=== PATIENT | female | born 1950 | race Caucasian/White ===

== ENCOUNTER → 2016-05-26 | Outpatient (CLI) | payer MEDICARE, MEDICAID ==
[~2016-05-26] MED LIST: ALBUPOW9 INH; ASPI81TA7 PO; ASTE137S; BACT400T PO; CALC600T7 PO; CLIN300C PO; DOXY-197 PO; DOXY150C PO; DRIS1CAP PO; EPI PEN SC; GLUC500T PO; HYZA100T2 PO; MULTTAB4 PO; NORCOTAB PO; OMEP20CA3 PO; PRAV40TA PO; SIMV40TA2 PO; SING4GRA PO; SYMB16INH INH; TYLE325T5 PO; VITAD1000T PO; ZOLO100T PO
== END ==
LOC: M HL 11:32
PROVIDERS: ATTEND Nurse Practitioner Family
DX: Z71.3 Dietary counseling and surveillance (principal); E11.9 Type 2 diabetes mellitus without complications

== ENCOUNTER → 2016-05-28 | Outpatient (REF) | payer MEDICARE, MEDICAID | LOC: M SFHCWAGY 11:16 | PROVIDERS: ATTEND Nurse Practitioner Family | DX: Z12.12 Encounter for screening for malignant neoplasm of rectum (principal) ==

== ENCOUNTER → 2016-05-28 | Outpatient (CLI) | payer MEDICARE, MEDICAID ==
--- NOTE | 2016-05-28 13:57 | REPMRS ---
Patient History The patient states she had a clinical breast exam in 05/2016. Patient is postmenopausal, has history of endometrial cancer at age 51, and is nulliparous. No known family history of cancer. Digital Woman Screen Mammo: May 28, 2016 - Exam #: [id number] Bilateral CC and MLO view(s) were taken. Technologist: Marian Jacobo, Technologist Prior study comparison: August 22, 2014, digital woman screen mammo performed at [facility] to [place]. April 26, 2013, digital woman screen mammo performed at [facility] to [place]. March 17, 2012, digital woman screen mammo performed at [facility] to [place]. FINDINGS: There are scattered fibroglandular densities. There has been no change in the appearance of the mammogram from the prior studies. There is a mild amount of scattered fibroglandular density which is fairly symmetric. There is no interval development of dominant mass, architectural distortion, or clustered microcalcification suggestive of malignancy. ASSESSMENT: BI-RADS/ACR category 1 mammogram. Negative. Recommendation Routine screening mammogram in 1 year (for women over age 40). This mammogram was interpreted with the aid of an FDA-approved computer-aided dectection system. Electronically Signed By: Eren Garcia MD 05/28/16 [id number]
== END ==
LOC: M WHC 10:53
PROVIDERS: ATTEND Nurse Practitioner Family
DX: Z12.31 Encounter for screening mammogram for malignant neoplasm of breast (principal); Z91.89 Other specified personal risk factors, not elsewhere classified; Z78.0 Asymptomatic menopausal state; Z12.12 Encounter for screening for malignant neoplasm of rectum
CPT/HCPCS: 82270; G0101; G0123; G0202

== ENCOUNTER 2016-06-22 15:18 | Emergency (ER) | payer MEDICARE, MEDICAID ==
[2016-06-22] MEDS ORDERED: IBUPROFEN 600 MG TAB As Ordered ONE (18:00)
[2016-06-22] MEDS ORDERED: ONDANSETRON 4 MG ORAL DISINTEGRATING TAB (S0181) As Ordered ONE (18:00)
--- NOTE | 2016-06-22 18:23 | REP ---
Clinical: Acute cough . Comparison: 11/14/2013 . Technique: PA and lateral. Findings: The mediastinum and cardiac silhouette are normal. The lung rhodes are clear and without acute consolidation, effusion, or pneumothorax. The skeletal structures are intact and normal. Impression: 1. No acute cardiopulmonary process. Signed by Bharat Orr MD 06/22/2016 06:15 P
--- NOTE | 2016-06-22 19:07 | EDDOCDS ---
Physician Documentation [facility] Name: Emma Mccarty Age: 65 yrs Sex: Female : 1950 Arrival Date: 06/22/2016 Time: 15:18 Bed TR7 Private MD: Machelle Dorsey NP Disposition: 06/22/16 18:45 Discharged to Home/Self Care. Impression: Other asthma - irritant to airway, Vomiting. - Condition is Stable. - Discharge Instructions: Nausea and Vomiting, Asthma, Acute Bronchospasm. - Prescriptions for ZOFRAN ODT 4 mg - dissolve 1 tablet by ORAL route 4 times per day As needed do not chew, do not swallow whole; 10 tablet. Albuterol Sulfate 2.5 mg /3 mL (0.083 %) Inhalation Solution for Nebulization - inhale 1 unit by NEBULIZATION route 4 times per day As needed; 1 box. - Medication Reconciliation, Local Pharmacy Hours form. - Follow up: Machelle Dorsey; When: Call to arrange an appointment; Reason: Recheck today's complaints, Continuance of care. - Problem is new. - Symptoms are unchanged. Historical: - Allergies: Bees; Prozac (Rash); - Home Meds: 1. atorvastatin 80 mg oral tab 1 tab once daily 2. glipizide 10 mg Oral tr24 1 tab once daily 3. hydrochlorothiazide 12.5 mg Oral cap 1 cap once daily 4. losartan-hydrochlorothiazide 50-12.5 mg oral tab 1 tab once daily 5. Prilosec 20 mg Oral cpDR 1 cap once daily as needed 6. Singulair 10 mg Oral tab 1 tab nightly 7. Tradjenta 5 mg oral tab 1 tab once daily 8. Zoloft 100 mg Oral tab 1 tab once daily 9. Lamisil oral Unknown oral - PMHx: Asthma; Depression; Diabetes - NIDDM: uncontrolled; Hypercholesterolemia; Hypertension; - PSHx: Hysterectomy; Cholecystectomy; double vein ligation; - Social history: Smoking status: Patient/guardian denies using No barriers to communication noted, The patient speaks fluent Dominican. - Family history: Not pertinent. - : The pt / caregiver states he / she is not on anticoagulants. Home medication list is obtained from the patient, [employer] import data. - Exposure Risk Screening:: None identified. Vital Signs: 06/22 15:21 BP 142 / 69; Pulse 67; Resp 18 S; Temp 95.8(O); Pulse Ox 97% on R/A; Weight 99.79 kg / gr2 220 lbs (R); Height 4 ft. 10 in. (147.32 cm) (R); Pain 4/10; 15:21 Body Mass Index 45.98 (99.79 kg, 147.32 cm) gr2 MDM: 17:39 Financial registration complete. gjb 17:42 [facility] Payment Agreement was scanned into [employer] and attached to record. gjb 17:44 Ibuprofen 600 mg PO once ordered. mo1 17:44 Ondansetron ODT Oral Disintegrating Tablet 4 mg PO once ordered. mo1 17:45 Chest, 2 View (pa\E\lat) Ordered. EDMS Administered Medications: 18:03 Drug: Ibuprofen 600 mg [ibuprofen 600 mg tablet (1 tabs)] Route: PO; kcs 18:03 Drug: Ondansetron ODT 4 mg [ondansetron 4 mg disintegrating tablet (1 tabs)] Route: PO; kcs Signatures: Dispatcher [employer] EDMS Sultana Gomez, Jose Rafael Reyes RN, PA PA mo1 Kathy Troncoso RN RN mk4 Beck, Gabriela gjb Sleeman, Kacey RN kcs The chart was reviewed and I authenticate all verbal orders and agree with the evaluation and treatment provided.Attachments: 17:42 [facility] Payment Agreement gjb MTDD
--- NOTE | 2016-06-22 19:07 | EDDOCDS ---
Nurse's Notes Name: Emma Mccarty Age: 65 yrs Sex: Female : 1950 Arrival Date: 06/22/2016 Time: 15:18 Bed TR7 Private MD: Machelle Dorsey NP Diagnosis: Other asthma-irritant to airway;Vomiting Presentation: 06/22 15:27 Presenting complaint: Patient states: Pt presents with c/o body aches vomiting diarrhea dls shaking dizzy since . Adult Sepsis Screening: The patient does not have new or worsening altered mentation. Patient's respiratory rate is less than 22. Systolic blood pressure is greater than 100. Patient has a qSOFA score of 0- Negative Sepsis Screen. Suicide/Homicide risk assessment- the patient denies having any suicidal and/or homicidal ideations and does not present with any other emotional, behavioral or mental health complaints. Status: Patient is not a service administrator or dependent. Transition of care: patient was not received from another setting of care. 15:27 Acuity: KILO Level 4 dls 15:27 Method Of Arrival: Walkin/Carried/Asstd dls Triage Assessment: 18:58 Pt Declines HIV testing. mk4 Historical: - Allergies: Bees; Prozac (Rash); - Home Meds: 1. atorvastatin 80 mg oral tab 1 tab once daily 2. glipizide 10 mg Oral tr24 1 tab once daily 3. hydrochlorothiazide 12.5 mg Oral cap 1 cap once daily 4. losartan-hydrochlorothiazide 50-12.5 mg oral tab 1 tab once daily 5. Prilosec 20 mg Oral cpDR 1 cap once daily as needed 6. Singulair 10 mg Oral tab 1 tab nightly 7. Tradjenta 5 mg oral tab 1 tab once daily 8. Zoloft 100 mg Oral tab 1 tab once daily 9. Lamisil oral Unknown oral - PMHx: Asthma; Depression; Diabetes - NIDDM: uncontrolled; Hypercholesterolemia; Hypertension; - PSHx: Hysterectomy; Cholecystectomy; double vein ligation; - Social history: Smoking status: Patient/guardian denies using No barriers to communication noted, The patient speaks fluent East Timorese. - Family history: Not pertinent. - : The pt / caregiver states he / she is not on anticoagulants. Home medication list is obtained from the patient, [employer] import data. - Exposure Risk Screening:: None identified. Screenin:15 Screening information is obtained from the patient. Fall risk: No risks identified. mk4 Assistance ADL's: requires no assistance with activities of daily living. Abuse/DV Screen: The patient / caregiver reports he/she is: not in a situation that causes fear, pain or injury. Nutritional screening: No deficits noted. Advance Directives: Currently, there is no health care proxy. There is no active DNR order. There is no living will. home support is adequate. Assessment: 17:15 General: Appears distressed, uncomfortable. Pain: Location: body aches all over. mk4 Neurological: Level of Consciousness is awake, alert. GI: Abdomen is obese, Abd is soft and non tender. 19:04 Reassessment: Patient states feeling better. Patient states symptoms have improved. mk4 General: Appears in no apparent distress, comfortable. Respiratory: Airway is patent Respiratory effort is even, unlabored, Respiratory pattern is regular. Vital Signs: 15:21 BP 142 / 69; Pulse 67; Resp 18 S; Temp 95.8(O); Pulse Ox 97% on R/A; Weight 99.79 kg gr2 (R); Height 4 ft. 10 in. (147.32 cm) (R); Pain 4/10; 15:21 Body Mass Index 45.98 (99.79 kg, 147.32 cm) gr2 Vitals: 15:21 Log In Time: June 22, 2016 at 15:21. gr2 ED Course: 15:20 Patient visited by Renetta Alcantara. gr2 15:20 Machelle Dorsey is Private Physician. gr2 15:20 Patient moved to Waiting gr2 15:23 Patient visited by Renetta Alcantara. gr2 15:23 Patient moved to Pre RCE gr2 15:28 Triage Initiated dls 17:15 The patient / caregiver is instructed regarding the plan of care and ED course. mk4 17:15 No IV's were initiated during this patient's visit. No procedures done that require mk4 assistance. 17:17 Patient moved to Triage 1 ct3 17:28 Jose Rafael Resendez PA is PHCP. mo1 17:28 Sinan Del Valle MD is Attending Physician. mo1 17:30 Patient visited by Jose Rafael Resendez PA. mo1 17:42 [facility] Payment Agreement was scanned into [employer] and attached to record. gjb 18:03 Patient moved to TR1 kcs 18:15 Patient visited by Mi Saldaña PCA. ct3 18:35 Patient moved to PD kcs 18:42 Chest, 2 View (pa\E\lat) Returned. EDMS 18:45 Machelle Dorsey is Referral Physician. mo1 19:03 Patient moved to TR7 dsf Administered Medications: 18:03 Drug: Ibuprofen 600 mg [ibuprofen 600 mg tablet (1 tabs)] Route: PO; kcs 18:03 Drug: Ondansetron ODT 4 mg [ondansetron 4 mg disintegrating tablet (1 tabs)] Route: PO; kcs Order Results: Radiology Order: Chest, 2 View (pa\E\lat) Test: Chest, 2 View (pa\E\lat) REASON FOR EXAMINATION: Cough; Clinical: Acute cough .; ; Comparison: 11/14/2013 .; ; Technique: PA and lateral.; ; Findings:; The mediastinum and cardiac silhouette are normal. The lung rhodes are clear and; without acute consolidation, effusion, or pneumothorax. The skeletal structures; are intact and normal.; ; Impression:; 1. No acute cardiopulmonary process.; ; ; Signed by; Bharat Orr MD 06/22/2016 06:15 P; Outcome: 17:15 Discharge Assessment: Patient awake, alert and oriented x 3. No cognitive and/or mk4 functional deficits noted. Patient verbalized understanding of disposition instructions. Patient awake and alert. Discharge Assessment: patient administered narcotics - no. The following High Risk Discharge criteria are identified: None. Condition: good Condition: stable. No special radiology studies were completed. Property sent home with patient. 18:45 Discharge ordered by Provider. mo1 19:05 Discharge instructions given to patient, Instructed on discharge instructions. mk4 19:06 Patient left the ED. mk4 Signatures: Dispatcher [employer] EDMS Melodie Her RN RN kcs Scott, Debra, RN RN dls Taveras, Consuelo, PCA PCA ct3 Anne Brasher RN RN [facility] Renetta Alcantara gr2 Jose Rafael Resendez PA PA mo1 Aba, Kathy, RN RN mk4 Ugarte, Sheridan gjb MTDD
--- NOTE | 2016-06-24 20:07 | EDDOCDS ---
Physician Documentation [facility] Name: Emma Mccarty Age: 65 yrs Sex: Female : 1950 Arrival Date: 06/22/2016 Time: 15:18 Bed TR7 Private MD: Machelle Dorsey NP Disposition: 06/22/16 18:45 Discharged to Home/Self Care. Impression: Other asthma - irritant to airway, Vomiting. - Condition is Stable. - Discharge Instructions: Nausea and Vomiting, Asthma, Acute Bronchospasm. - Prescriptions for ZOFRAN ODT 4 mg - dissolve 1 tablet by ORAL route 4 times per day As needed do not chew, do not swallow whole; 10 tablet. Albuterol Sulfate 2.5 mg /3 mL (0.083 %) Inhalation Solution for Nebulization - inhale 1 unit by NEBULIZATION route 4 times per day As needed; 1 box. - Medication Reconciliation, Local Pharmacy Hours form. - Follow up: Machelle Dorsey; When: Call to arrange an appointment; Reason: Recheck today's complaints, Continuance of care. - Problem is new. - Symptoms are unchanged. Historical: - Allergies: Bees; Prozac (Rash); - Home Meds: 1. atorvastatin 80 mg oral tab 1 tab once daily 2. glipizide 10 mg Oral tr24 1 tab once daily 3. hydrochlorothiazide 12.5 mg Oral cap 1 cap once daily 4. losartan-hydrochlorothiazide 50-12.5 mg oral tab 1 tab once daily 5. Prilosec 20 mg Oral cpDR 1 cap once daily as needed 6. Singulair 10 mg Oral tab 1 tab nightly 7. Tradjenta 5 mg oral tab 1 tab once daily 8. Zoloft 100 mg Oral tab 1 tab once daily 9. Lamisil oral Unknown oral - PMHx: Asthma; Depression; Diabetes - NIDDM: uncontrolled; Hypercholesterolemia; Hypertension; - PSHx: Hysterectomy; Cholecystectomy; double vein ligation; - Social history: Smoking status: Patient/guardian denies using No barriers to communication noted, The patient speaks fluent Austrian. - Family history: Not pertinent. - : The pt / caregiver states he / she is not on anticoagulants. Home medication list is obtained from the patient, [email or web address] import data. - Exposure Risk Screening:: None identified. Vital Signs: 06/22 15:21 BP 142 / 69; Pulse 67; Resp 18 S; Temp 95.8(O); Pulse Ox 97% on R/A; Weight 99.79 kg / gr2 220 lbs (R); Height 4 ft. 10 in. (147.32 cm) (R); Pain 4/10; 15:21 Body Mass Index 45.98 (99.79 kg, 147.32 cm) gr2 MDM: 17:39 Financial registration complete. gjb 17:42 [facility] Payment Agreement was scanned into [employer] and attached to record. gjb 17:44 Ibuprofen 600 mg PO once ordered. mo1 17:44 Ondansetron ODT Oral Disintegrating Tablet 4 mg PO once ordered. mo1 17:45 Chest, 2 View (pa\E\lat) Ordered. EDIL 06/23 12:50 T-Sheet-- Draft Copy was scanned into [employer] and attached to record. gb Administered Medications: 06/22 18:03 Drug: Ibuprofen 600 mg [ibuprofen 600 mg tablet (1 tabs)] Route: PO; kcs 18:03 Drug: Ondansetron ODT 4 mg [ondansetron 4 mg disintegrating tablet (1 tabs)] Route: PO; kcs Signatures: Dispatcher [employer] EDIL Sultana Gomez, RN RN Alisson Petersen, Reg Reg Jose Rafael Gallardo PA PA mo1 Kathy Troncoso RN RN Sheridan Mahmood Kacey RN kcs The chart was reviewed and I authenticate all verbal orders and agree with the evaluation and treatment provided.Attachments: 17:42 [facility] Payment Agreement page hospital 06/23 12:50 T-Sheet-- Draft Copy gb Chart Complete MTDD
--- NOTE | 2016-06-24 20:07 | EDDOCDS ---
Physician Documentation [facility] Name: Emma Mccarty Age: 65 yrs Sex: Female : 1950 Arrival Date: 06/22/2016 Time: 15:18 Bed TR7 Private MD: Machelle Dorsey NP Disposition: 06/22/16 18:45 Discharged to Home/Self Care. Impression: Other asthma - irritant to airway, Vomiting. - Condition is Stable. - Discharge Instructions: Nausea and Vomiting, Asthma, Acute Bronchospasm. - Prescriptions for ZOFRAN ODT 4 mg - dissolve 1 tablet by ORAL route 4 times per day As needed do not chew, do not swallow whole; 10 tablet. Albuterol Sulfate 2.5 mg /3 mL (0.083 %) Inhalation Solution for Nebulization - inhale 1 unit by NEBULIZATION route 4 times per day As needed; 1 box. - Medication Reconciliation, Local Pharmacy Hours form. - Follow up: Machelle Dorsey; When: Call to arrange an appointment; Reason: Recheck today's complaints, Continuance of care. - Problem is new. - Symptoms are unchanged. Historical: - Allergies: Bees; Prozac (Rash); - Home Meds: 1. atorvastatin 80 mg oral tab 1 tab once daily 2. glipizide 10 mg Oral tr24 1 tab once daily 3. hydrochlorothiazide 12.5 mg Oral cap 1 cap once daily 4. losartan-hydrochlorothiazide 50-12.5 mg oral tab 1 tab once daily 5. Prilosec 20 mg Oral cpDR 1 cap once daily as needed 6. Singulair 10 mg Oral tab 1 tab nightly 7. Tradjenta 5 mg oral tab 1 tab once daily 8. Zoloft 100 mg Oral tab 1 tab once daily 9. Lamisil oral Unknown oral - PMHx: Asthma; Depression; Diabetes - NIDDM: uncontrolled; Hypercholesterolemia; Hypertension; - PSHx: Hysterectomy; Cholecystectomy; double vein ligation; - Social history: Smoking status: Patient/guardian denies using No barriers to communication noted, The patient speaks fluent Spanish. - Family history: Not pertinent. - : The pt / caregiver states he / she is not on anticoagulants. Home medication list is obtained from the patient, [employer] import data. - Exposure Risk Screening:: None identified. Vital Signs: 06/22 15:21 BP 142 / 69; Pulse 67; Resp 18 S; Temp 95.8(O); Pulse Ox 97% on R/A; Weight 99.79 kg / gr2 220 lbs (R); Height 4 ft. 10 in. (147.32 cm) (R); Pain 4/10; 15:21 Body Mass Index 45.98 (99.79 kg, 147.32 cm) gr2 MDM: 17:39 Financial registration complete. gjb 17:42 [facility] Payment Agreement was scanned into [employer] and attached to record. gjb 17:44 Ibuprofen 600 mg PO once ordered. mo1 17:44 Ondansetron ODT Oral Disintegrating Tablet 4 mg PO once ordered. mo1 17:45 Chest, 2 View (pa\E\lat) Ordered. EDMA 06/23 12:50 T-Sheet-- Draft Copy was scanned into [employer] and attached to record. gb Administered Medications: 06/22 18:03 Drug: Ibuprofen 600 mg [ibuprofen 600 mg tablet (1 tabs)] Route: PO; kcs 18:03 Drug: Ondansetron ODT 4 mg [ondansetron 4 mg disintegrating tablet (1 tabs)] Route: PO; kcs Signatures: Dispatcher [employer] EDMA Sultana Gomez, RN RN Alisson Petersen, Reg Reg Jose Rafael Gallardo PA PA mo1 Kathy Troncoso RN RN Sheridan Mahmood Kacey RN kcs The chart was reviewed and I authenticate all verbal orders and agree with the evaluation and treatment provided.Attachments: 17:42 [facility] Payment Agreement [facility] 06/23 12:50 T-Sheet-- Draft Copy gb Chart Complete MTDD
--- NOTE | 2016-06-24 20:07 | EDDOCDS ---
Nurse's Notes [facility] Name: Emma Mccarty Age: 65 yrs Sex: Female : 1950 Arrival Date: 06/22/2016 Time: 15:18 Bed TR7 Private MD: Machelle Dorsey NP Diagnosis: Other asthma-irritant to airway;Vomiting Presentation: 06/22 15:27 Presenting complaint: Patient states: Pt presents with c/o body aches vomiting diarrhea dls shaking dizzy since . Adult Sepsis Screening: The patient does not have new or worsening altered mentation. Patient's respiratory rate is less than 22. Systolic blood pressure is greater than 100. Patient has a qSOFA score of 0- Negative Sepsis Screen. Suicide/Homicide risk assessment- the patient denies having any suicidal and/or homicidal ideations and does not present with any other emotional, behavioral or mental health complaints. Status: Patient is not a pharmaceutical service representative or dependent. Transition of care: patient was not received from another setting of care. 15:27 Acuity: KILO Level 4 dls 15:27 Method Of Arrival: Walkin/Carried/Asstd dls Triage Assessment: 18:58 Pt Declines HIV testing. mk4 Historical: - Allergies: Bees; Prozac (Rash); - Home Meds: 1. atorvastatin 80 mg oral tab 1 tab once daily 2. glipizide 10 mg Oral tr24 1 tab once daily 3. hydrochlorothiazide 12.5 mg Oral cap 1 cap once daily 4. losartan-hydrochlorothiazide 50-12.5 mg oral tab 1 tab once daily 5. Prilosec 20 mg Oral cpDR 1 cap once daily as needed 6. Singulair 10 mg Oral tab 1 tab nightly 7. Tradjenta 5 mg oral tab 1 tab once daily 8. Zoloft 100 mg Oral tab 1 tab once daily 9. Lamisil oral Unknown oral - PMHx: Asthma; Depression; Diabetes - NIDDM: uncontrolled; Hypercholesterolemia; Hypertension; - PSHx: Hysterectomy; Cholecystectomy; double vein ligation; - Social history: Smoking status: Patient/guardian denies using No barriers to communication noted, The patient speaks fluent Sri Lankan. - Family history: Not pertinent. - : The pt / caregiver states he / she is not on anticoagulants. Home medication list is obtained from the patient, [employer] import data. - Exposure Risk Screening:: None identified. Screenin:15 Screening information is obtained from the patient. Fall risk: No risks identified. mk4 Assistance ADL's: requires no assistance with activities of daily living. Abuse/DV Screen: The patient / caregiver reports he/she is: not in a situation that causes fear, pain or injury. Nutritional screening: No deficits noted. Advance Directives: Currently, there is no health care proxy. There is no active DNR order. There is no living will. home support is adequate. Assessment: 17:15 General: Appears distressed, uncomfortable. Pain: Location: body aches all over. mk4 Neurological: Level of Consciousness is awake, alert. GI: Abdomen is obese, Abd is soft and non tender. 19:04 Reassessment: Patient states feeling better. Patient states symptoms have improved. mk4 General: Appears in no apparent distress, comfortable. Respiratory: Airway is patent Respiratory effort is even, unlabored, Respiratory pattern is regular. Vital Signs: 15:21 BP 142 / 69; Pulse 67; Resp 18 S; Temp 95.8(O); Pulse Ox 97% on R/A; Weight 99.79 kg gr2 (R); Height 4 ft. 10 in. (147.32 cm) (R); Pain 4/10; 15:21 Body Mass Index 45.98 (99.79 kg, 147.32 cm) gr2 Vitals: 15:21 Log In Time: June 22, 2016 at 15:21. gr2 ED Course: 15:20 Patient visited by Renetta Alcantara. gr2 15:20 Machelle Dorsey is Private Physician. gr2 15:20 Patient moved to Waiting gr2 15:23 Patient visited by Renetta Alcantara. gr2 15:23 Patient moved to Pre RCE gr2 15:28 Triage Initiated dls 17:15 The patient / caregiver is instructed regarding the plan of care and ED course. mk4 17:15 No IV's were initiated during this patient's visit. No procedures done that require mk4 assistance. 17:17 Patient moved to Triage 1 ct3 17:28 Jose Rafael Resendez PA is PHCP. mo1 17:28 Sinan Del Valle MD is Attending Physician. mo1 17:30 Patient visited by Jose Rafael Resendez PA. mo1 17:42 [facility] Payment Agreement was scanned into [employer] and attached to record. gjb 18:03 Patient moved to TR1 kcs 18:15 Patient visited by Mi Saldaña PCA. ct3 18:35 Patient moved to PD kcs 18:42 Chest, 2 View (pa\E\lat) Returned. EDMS 18:45 Machelle Dorsey is Referral Physician. mo1 19:03 Patient moved to TR7 [facility] 06/23 12:50 T-Sheet-- Draft Copy was scanned into [employer] and attached to record. gb Administered Medications: 06/22 18:03 Drug: Ibuprofen 600 mg [ibuprofen 600 mg tablet (1 tabs)] Route: PO; kcs 18:03 Drug: Ondansetron ODT 4 mg [ondansetron 4 mg disintegrating tablet (1 tabs)] Route: PO; kcs Order Results: Radiology Order: Chest, 2 View (pa\E\lat) Test: Chest, 2 View (pa\E\lat) REASON FOR EXAMINATION: Cough; Clinical: Acute cough .; ; Comparison: 11/14/2013 .; ; Technique: PA and lateral.; ; Findings:; The mediastinum and cardiac silhouette are normal. The lung rhodes are clear and; without acute consolidation, effusion, or pneumothorax. The skeletal structures; are intact and normal.; ; Impression:; 1. No acute cardiopulmonary process.; ; ; Signed by; Bharat Orr MD 06/22/2016 06:15 P; Outcome: 17:15 Discharge Assessment: Patient awake, alert and oriented x 3. No cognitive and/or mk4 functional deficits noted. Patient verbalized understanding of disposition instructions. Patient awake and alert. Discharge Assessment: patient administered narcotics - no. The following High Risk Discharge criteria are identified: None. Condition: good Condition: stable. No special radiology studies were completed. Property sent home with patient. 18:45 Discharge ordered by Provider. mo1 19:05 Discharge instructions given to patient, Instructed on discharge instructions. mk4 19:06 Patient left the ED. mk4 Signatures: Dispatcher [employer] EDMS Melodie Her RN RN kcs Scott, Debra, RN RN dls Barnhardt, Gloria, Reg Reg Mi Saldaña PCA PCA ct3 Anne Brasher RN RN dsf Renetta Alcantara gr2 Jose Rafael Resendez PA PA mo1 Kathy Troncoso, RN RN mk4 Sheridan Ugarte Chart Complete MTDD
== END 2016-06-22 19:06 | disposition home or self-care (01) ==
LOC: M ED 15:18
DX: J45.901 Unspecified asthma with (acute) exacerbation (principal); R11.2 Nausea with vomiting, unspecified; R19.7 Diarrhea, unspecified; J02.9 Acute pharyngitis, unspecified; I10 Essential (primary) hypertension; E11.9 Type 2 diabetes mellitus without complications; E78.00 Pure hypercholesterolemia, unspecified; F32.9 Major depressive disorder, single episode, unspecified; B35.1 Tinea unguium; Z79.899 Other long term (current) drug therapy; Z91.030 Bee allergy status; Z88.8 Allergy status to other drugs, medicaments and biological substances

== ENCOUNTER → 2016-06-23 | Outpatient (REF) | payer MEDICARE, MEDICAID ==
[2016-06-23 13:10] LABS: ALBUMIN 3.3 GM/DL (3.2-5.2); ALBUMIN/GLOBULIN RATIO 0.94 (1.00-1.93); BILIRUBIN,TOTAL 0.5 MG/DL (0.2-1.0); CALCIUM LEVEL 9.2 MG/DL (8.8-10.2); CREATININE FOR GFR 1.2 MG/DL (0.55-1.02); GLOMERULAR FILTRATION RATE 48.1 (>45); POTASSIUM SERUM 3.8 MEQ/L (3.5-5.1); TOTAL PROTEIN 6.8 GM/DL (6.4-8.2)
== END ==
LOC: M SFHCPLAZ 08:49
PROVIDERS: ATTEND Nurse Practitioner Family
DX: E11.9 Type 2 diabetes mellitus without complications (principal)

== ENCOUNTER → 2016-06-23 | Outpatient (REF) | payer MEDICARE, MEDICAID ==
[2016-06-23 12:12] LABS: MEAN CORPUSCULAR HEMOGLOBIN 30.5 pg (27.0-33.0); MEAN CORPUSCULAR HGB CONC 32.4 g/dl (32.0-36.5); MEAN CORPUSCULAR VOLUME 94.3 fl (80.0-96.0); RED CELL DISTRIBUTION WIDTH 13.4 % (11.5-14.5)
[2016-06-23 13:07] LABS: ALBUMIN 3.3 GM/DL (3.2-5.2); ALBUMIN/GLOBULIN RATIO 0.94 (1.00-1.93); BILIRUBIN,DIRECT 0.1 MG/DL (0.0-0.2); BILIRUBIN,TOTAL 0.6 MG/DL (0.2-1.0); CALCIUM LEVEL 9.1 MG/DL (8.8-10.2); CREATININE FOR GFR 1.2 MG/DL (0.55-1.02); GLOMERULAR FILTRATION RATE 48.1 (>45); PHOSPHORUS LEVEL 4.8 MG/DL (2.5-4.9); POTASSIUM SERUM 3.8 MEQ/L (3.5-5.1); TOTAL PROTEIN 6.8 GM/DL (6.4-8.2)
== END ==
LOC: M LABDRAWP 11:53
PROVIDERS: ATTEND Podiatrist
DX: B35.1 Tinea unguium (principal); Z79.899 Other long term (current) drug therapy

== ENCOUNTER 2016-07-05 12:39 | Emergency (ER) | payer MEDICARE, MEDICAID ==
--- NOTE | 2016-07-05 13:51 | EDDOCDS ---
Nurse's Notes [facility] Name: Emma Mccarty Age: 65 yrs Sex: Female : 1950 Arrival Date: 07/05/2016 Time: 12:39 Bed TR7 Private MD: Machelle Dorsey NP Diagnosis: Sacroiliitis, not elsewhere classified;Low back pain Presentation: 07/05 12:45 Presenting complaint: Patient states: chronic back pain, worse today. Mid lower back ttb pain started last Wednesday. Acute neurological deficits are not present. Mechanism of Injury: No Mechanism of Injury. Adult Sepsis Screening: The patient does not have new or worsening altered mentation. Patient's respiratory rate is less than 22. Systolic blood pressure is greater than 100. Patient has a qSOFA score of 0- Negative Sepsis Screen. Suicide/Homicide risk assessment- the patient denies having any suicidal and/or homicidal ideations and does not present with any other emotional, behavioral or mental health complaints. 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 Transition of care: patient was not received from another setting of care. 12:45 Acuity: KILO Level 5 ttb 12:45 Method Of Arrival: Walkin/Carried/Asstd ttb Triage Assessment: 12:49 General: Appears in no apparent distress, uncomfortable, well nourished, well groomed, ttb Behavior is appropriate for age, cooperative, pleasant. Pain: Location: lower back 15/10. HIV screening NA for this visit Offered previously. Neurological: Level of Consciousness is awake, alert, Denies weakness numbness. Cardiovascular: Chest pain is denied. Respiratory: No deficits noted. GI: Denies nausea, vomiting. Derm: Skin is normal. Musculoskeletal: Range of motion intact in all extremities. Injury Description: No known injury. Historical: - Allergies: Bees; Prozac (Rash); - Home Meds: 1. atorvastatin 80 mg oral tab 1 tab once daily (Last dose: 07/04/2016) 2. glipizide 10 mg Oral tr24 1 tab once daily (Last dose: 07/05/2016 08:00) 3. hydrochlorothiazide 12.5 mg Oral cap 1 cap once daily (Last dose: 07/05/2016 08:00) 4. Lamisil oral (Last dose: Unknown) 5. losartan-hydrochlorothiazide 50-12.5 mg oral tab 1 tab once daily (Last dose: 07/05/2016 08:00) 6. Prilosec 20 mg Oral cpDR 1 cap once daily (Last dose: 07/05/2016 08:00) 7. Singulair 10 mg Oral tab 1 tab nightly (Last dose: 07/04/2016 20:00) 8. Tradjenta 5 mg oral tab 1 tab once daily (Last dose: 07/05/2016 08:00) 9. Zoloft 100 mg Oral tab 1 tab once daily (Last dose: 07/05/2016 08:00) 10. Tylenol 325 mg Oral tab 2 tabs every 4-6 hours (Last dose: 07/04/2016) - PMHx: Hypertension; Hypercholesterolemia; Diabetes - NIDDM: uncontrolled; Depression; Asthma; - PSHx: Hysterectomy; "double vein ligation"; Cholecystectomy; - Social history: Smoking status: Patient states was never smoker of tobacco. Patient/guardian denies using alcohol, street drugs, No barriers to communication noted, The patient speaks fluent Romanian, Speaks appropriately for age. - Family history: Not pertinent. - : The pt / caregiver states he / she is not on anticoagulants. Home medication list is obtained from the patient. - Exposure Risk Screening:: None identified. Screenin:50 Screening information is obtained from the patient. Fall risk: No risks identified. mlb1 Assistance ADL's: requires no assistance with activities of daily living. Abuse/DV Screen: The patient / caregiver reports he/she is: not in a situation that causes fear, pain or injury. Nutritional screening: No deficits noted. Advance Directives: Currently, there is no health care proxy. home support is adequate. Assessment: 13:49 General: Appears in no apparent distress, Behavior is appropriate for age, cooperative. mlb1 Pain: Location: low back area Pain currently is 10 out of 10 on a pain scale. Neurological: No deficits noted. Musculoskeletal: Range of motion intact in all extremities. Vital Signs: 12:40 BP 163 / 82; Pulse 75; Resp 16; Temp 96.7(O); Pulse Ox 98% on R/A; Weight 97.98 kg (R); lr2 Height 4 ft. 10 in. (147.32 cm) (R); Pain 10/10; 12:40 Body Mass Index 45.14 (97.98 kg, 147.32 cm) lr2 Vitals: 12:40 Log In Time: July 05, 2016 at 12:39. lr2 ED Course: 12:40 Patient visited by Mishel Garay. lr2 12:40 Patient moved to Waiting lr2 12:42 Machelle Dorsey is Private Physician. lr2 12:44 Patient visited by Jose Rafael Evans, MARCO. mlb1 12:44 Patient moved to Pre RCE lr2 12:46 Triage Initiated mlb1 13:01 Patient moved to Triage 1 ttb 13:19 Filippo Harp PA is PHCP. btw 13:19 Jose David Ugalde MD is Attending Physician. btw 13:19 Patient visited by Filippo Harp PA. btw 13:42 Machelle Dorsey is Referral Physician. btw 13:49 Patient moved to TR7 ar3 13:50 No IV's were initiated during this patient's visit. No procedures done that require mlb1 assistance. 13:51 Patient visited by Jose Rafael Evans, MARCO. mlb1 13:51 The patient / caregiver is instructed regarding the plan of care and ED course. mlb1 Order Results: There are currently no results for this order. Outcome: 13:42 Discharge ordered by Provider. btw 13:50 Discharge Assessment: Patient awake, alert and oriented x 3. No cognitive and/or mlb1 functional deficits noted. Patient verbalized understanding of disposition instructions. patient administered narcotics - no. The following High Risk Discharge criteria are identified: None. Discharged to home ambulatory, with friend. Condition: good. Discharge instructions given to patient, Instructed on discharge instructions, follow up and referral plans. medication usage, Demonstrated understanding of instructions, medications, Pt was receptive of discharge instructions/ teaching. Prescriptions given X 2. No special radiology studies were completed. Property sent home with patient. 13:51 Patient left the ED. mlb1 Signatures: Jose Rafael Evans, RN RN mlb1 Nevaeh Shore, HAND STRIPER HAND STRIPER ar3 Filippo Harp PA PA btTracy Tyler RN RN ttb Mishel Garay lr2 Corrections: (The following items were deleted from the chart) 12:46 12:44 Presenting complaint: Patient states: Low back pain began while running eight mlb1 days ago, seen by PCP twice since no improvement mlb1 12:46 12:44 Acute neurological deficits are not present. [place] [id number] 12:44 Mechanism of Injury: No Mechanism of Injury [place] [address] 12:44 Adult Sepsis Screening: The patient does not have new or worsening altered [facility] mentation. Patient's respiratory rate is less than 22. Systolic blood pressure is greater than 100. Patient has a qSOFA score of 0- Negative Sepsis Screen. [facility] 12:44 Suicide/Homicide risk assessment- the patient denies having any suicidal and/or mlb1 homicidal ideations and does not present with any other emotional, behavioral or mental health complaints [facility] 12:44 Status: The patient is a dependent. [place] [address] 12:44 Transition of care: patient was not received from another setting of care. [place] [address] 12:44 Acuity: KILO Level 4 [place] [address] 12:44 Method Of Arrival: Walkin/Carried/Asstd [place] [address] MTDD
--- NOTE | 2016-07-05 13:51 | EDDOCDS ---
Physician Documentation [facility] Name: Emma Mccarty Age: 65 yrs Sex: Female : 1950 Arrival Date: 07/05/2016 Time: 12:39 Bed TR7 Private MD: Machelle Dorsey NP Disposition: 07/05/16 13:42 Discharged to Home/Self Care. Impression: Sacroiliitis, not elsewhere classified, Low back pain. - Condition is Stable. - Discharge Instructions: Back Pain, Adult, [id number], Sacroiliac Joint Dysfunction. - Prescriptions for Robaxin- 750 750 mg Oral Tablet - take 1 tablet by ORAL route every 6 hours As needed; 40 tablet. etodolac 200 mg Oral Capsule - take 1 capsule by ORAL route 3 times per day; 30 capsule. - Medication Reconciliation, Local Pharmacy Hours form. - Follow up: Machelle Dorsey; When: Call to arrange an appointment; Reason: Further diagnostic work-up, Recheck today's complaints, Continuance of care. - Problem is new. - Symptoms are unchanged. Historical: - Allergies: Bees; Prozac (Rash); - Home Meds: 1. atorvastatin 80 mg oral tab 1 tab once daily (Last dose: 07/04/2016) 2. glipizide 10 mg Oral tr24 1 tab once daily (Last dose: 07/05/2016 08:00) 3. hydrochlorothiazide 12.5 mg Oral cap 1 cap once daily (Last dose: 07/05/2016 08:00) 4. Lamisil oral (Last dose: Unknown) 5. losartan-hydrochlorothiazide 50-12.5 mg oral tab 1 tab once daily (Last dose: 07/05/2016 08:00) 6. Prilosec 20 mg Oral cpDR 1 cap once daily (Last dose: 07/05/2016 08:00) 7. Singulair 10 mg Oral tab 1 tab nightly (Last dose: 07/04/2016 20:00) 8. Tradjenta 5 mg oral tab 1 tab once daily (Last dose: 07/05/2016 08:00) 9. Zoloft 100 mg Oral tab 1 tab once daily (Last dose: 07/05/2016 08:00) 10. Tylenol 325 mg Oral tab 2 tabs every 4-6 hours (Last dose: 07/04/2016) - PMHx: Hypertension; Hypercholesterolemia; Diabetes - NIDDM: uncontrolled; Depression; Asthma; - PSHx: Hysterectomy; "double vein ligation"; Cholecystectomy; - Social history: Smoking status: Patient states was never smoker of tobacco. Patient/guardian denies using alcohol, street drugs, No barriers to communication noted, The patient speaks fluent [place], Speaks appropriately for age. - Family history: Not pertinent. - : The pt / caregiver states he / she is not on anticoagulants. Home medication list is obtained from the patient. - Exposure Risk Screening:: None identified. Vital Signs: 07/05 12:40 BP 163 / 82; Pulse 75; Resp 16; Temp 96.7(O); Pulse Ox 98% on R/A; Weight 97.98 kg / lr2 216.01 lbs (R); Height 4 ft. 10 in. (147.32 cm) (R); Pain 10/10; 12:40 Body Mass Index 45.14 (97.98 kg, 147.32 cm) lr2 Signatures: Jose Rafael Evans RN RN mlb1 Filippo Harp PA PA Tracy Roberts RN RN ttb MARYD
--- NOTE | 2016-07-07 14:52 | EDDOCDS ---
Nurse's Notes [facility] Name: Emma Mccarty Age: 65 yrs Sex: Female : 1950 Arrival Date: 07/05/2016 Time: 12:39 Bed TR7 Private MD: Machelle Dorsey NP Diagnosis: Sacroiliitis, not elsewhere classified;Low back pain Presentation: 07/05 12:45 Presenting complaint: Patient states: chronic back pain, worse today. Mid lower back ttb pain started last Wednesday. Acute neurological deficits are not present. Mechanism of Injury: No Mechanism of Injury. Adult Sepsis Screening: The patient does not have new or worsening altered mentation. Patient's respiratory rate is less than 22. Systolic blood pressure is greater than 100. Patient has a qSOFA score of 0- Negative Sepsis Screen. Suicide/Homicide risk assessment- the patient denies having any suicidal and/or homicidal ideations and does not present with any other emotional, behavioral or mental health complaints. 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 Transition of care: patient was not received from another setting of care. 12:45 Acuity: KILO Level 5 ttb 12:45 Method Of Arrival: Walkin/Carried/Asstd ttb Triage Assessment: 12:49 General: Appears in no apparent distress, uncomfortable, well nourished, well groomed, ttb Behavior is appropriate for age, cooperative, pleasant. Pain: Location: lower back 15/10. HIV screening NA for this visit Offered previously. Neurological: Level of Consciousness is awake, alert, Denies weakness numbness. Cardiovascular: Chest pain is denied. Respiratory: No deficits noted. GI: Denies nausea, vomiting. Derm: Skin is normal. Musculoskeletal: Range of motion intact in all extremities. Injury Description: No known injury. Historical: - Allergies: Bees; Prozac (Rash); - Home Meds: 1. atorvastatin 80 mg oral tab 1 tab once daily (Last dose: 07/04/2016) 2. glipizide 10 mg Oral tr24 1 tab once daily (Last dose: 07/05/2016 08:00) 3. hydrochlorothiazide 12.5 mg Oral cap 1 cap once daily (Last dose: 07/05/2016 08:00) 4. Lamisil oral (Last dose: Unknown) 5. losartan-hydrochlorothiazide 50-12.5 mg oral tab 1 tab once daily (Last dose: 07/05/2016 08:00) 6. Prilosec 20 mg Oral cpDR 1 cap once daily (Last dose: 07/05/2016 08:00) 7. Singulair 10 mg Oral tab 1 tab nightly (Last dose: 07/04/2016 20:00) 8. Tradjenta 5 mg oral tab 1 tab once daily (Last dose: 07/05/2016 08:00) 9. Zoloft 100 mg Oral tab 1 tab once daily (Last dose: 07/05/2016 08:00) 10. Tylenol 325 mg Oral tab 2 tabs every 4-6 hours (Last dose: 07/04/2016) - PMHx: Hypertension; Hypercholesterolemia; Diabetes - NIDDM: uncontrolled; Depression; Asthma; - PSHx: Hysterectomy; "double vein ligation"; Cholecystectomy; - Social history: Smoking status: Patient states was never smoker of tobacco. Patient/guardian denies using alcohol, street drugs, No barriers to communication noted, The patient speaks fluent Romanian, Speaks appropriately for age. - Family history: Not pertinent. - : The pt / caregiver states he / she is not on anticoagulants. Home medication list is obtained from the patient. - Exposure Risk Screening:: None identified. Screenin:50 Screening information is obtained from the patient. Fall risk: No risks identified. mlb1 Assistance ADL's: requires no assistance with activities of daily living. Abuse/DV Screen: The patient / caregiver reports he/she is: not in a situation that causes fear, pain or injury. Nutritional screening: No deficits noted. Advance Directives: Currently, there is no health care proxy. home support is adequate. Assessment: 13:49 General: Appears in no apparent distress, Behavior is appropriate for age, cooperative. mlb1 Pain: Location: low back area Pain currently is 10 out of 10 on a pain scale. Neurological: No deficits noted. Musculoskeletal: Range of motion intact in all extremities. Vital Signs: 12:40 BP 163 / 82; Pulse 75; Resp 16; Temp 96.7(O); Pulse Ox 98% on R/A; Weight 97.98 kg (R); lr2 Height 4 ft. 10 in. (147.32 cm) (R); Pain 10/10; 12:40 Body Mass Index 45.14 (97.98 kg, 147.32 cm) lr2 Vitals: 12:40 Log In Time: July 05, 2016 at 12:39. lr2 ED Course: 12:40 Patient visited by Mishel Garay. lr2 12:40 Patient moved to Waiting lr2 12:42 Machelle Dorsey is Private Physician. lr2 12:44 Patient visited by Jose Rafael Evans, MARCO. mlb1 12:44 Patient moved to Pre RCE lr2 12:46 Triage Initiated mlb1 13:01 Patient moved to Triage 1 ttb 13:19 Filippo Harp PA is PHCP. btw 13:19 Jose David Ugalde MD is Attending Physician. btw 13:19 Patient visited by Filippo Harp PA. btw 13:42 Machelle Dorsey is Referral Physician. btw 13:49 Patient moved to TR7 ar3 13:50 No IV's were initiated during this patient's visit. No procedures done that require mlb1 assistance. 13:51 Patient visited by Jose Rafael Evans RN. mlb1 13:51 The patient / caregiver is instructed regarding the plan of care and ED course. mlb1 13:53 [facility] [place] Agreement was scanned into [employer] and attached to record. jp5 07/06 10:27 T-Sheet-- Draft Copy was scanned into [employer] and attached to record. gb Order Results: There are currently no results for this order. Outcome: 07/05 13:42 Discharge ordered by Provider. btw 13:50 Discharge Assessment: Patient awake, alert and oriented x 3. No cognitive and/or mlb1 functional deficits noted. Patient verbalized understanding of disposition instructions. patient administered narcotics - no. The following High Risk Discharge criteria are identified: None. Discharged to home ambulatory, with friend. Condition: good. Discharge instructions given to patient, Instructed on discharge instructions, follow up and referral plans. medication usage, Demonstrated understanding of instructions, medications, Pt was receptive of discharge instructions/ teaching. Prescriptions given X 2. No special radiology studies were completed. Property sent home with patient. 13:51 Patient left the ED. mlb1 Signatures: Alisson Mayfield, Reg Reg gb Jose Rafael Evans, MARCO RN mlb1 Nevaeh Shore, MA[employer] ar3 WolfendenFilippo PA PA btw Conner, Teresa, RN RN ttb Rama Wiggins jp5 Mishel Garay lr2 Corrections: (The following items were deleted from the chart) 12:44 Presenting complaint: Patient states: Low back pain began while running eight mlb1 days ago, seen by PCP twice since no improvement [facility] 12:44 Acute neurological deficits are not present. [place] [address] 12:44 Mechanism of Injury: No Mechanism of Injury [place] [address] 12:44 Adult Sepsis Screening: The patient does not have new or worsening altered mlb1 mentation. Patient's respiratory rate is less than 22. Systolic blood pressure is greater than 100. Patient has a qSOFA score of 0- Negative Sepsis Screen. [facility] 12:44 Suicide/Homicide risk assessment- the patient denies having any suicidal and/or mlb1 homicidal ideations and does not present with any other emotional, behavioral or mental health complaints [facility] 12:44 Status: The patient is a dependent. [place] [address] 12:44 Transition of care: patient was not received from another setting of care. [place] [address] 12:44 Acuity: KILO Level 4 [place] [address] 12:44 Method Of Arrival: Walkin/Carried/Asstd [place] [address] Chart Complete MTDD
--- NOTE | 2016-07-07 14:52 | EDDOCDS ---
Physician Documentation [facility] Name: Emma Mccarty Age: 65 yrs Sex: Female : 1950 Arrival Date: 07/05/2016 Time: 12:39 Bed TR7 Private MD: Machelle Dorsey NP Disposition: 07/05/16 13:42 Discharged to Home/Self Care. Impression: Sacroiliitis, not elsewhere classified, Low back pain. - Condition is Stable. - Discharge Instructions: Back Pain, Adult, [id number], Sacroiliac Joint Dysfunction. - Prescriptions for Robaxin- 750 750 mg Oral Tablet - take 1 tablet by ORAL route every 6 hours As needed; 40 tablet. etodolac 200 mg Oral Capsule - take 1 capsule by ORAL route 3 times per day; 30 capsule. - Medication Reconciliation, Local Pharmacy Hours form. - Follow up: Machelle Dorsey; When: Call to arrange an appointment; Reason: Further diagnostic work-up, Recheck today's complaints, Continuance of care. - Problem is new. - Symptoms are unchanged. Historical: - Allergies: Bees; Prozac (Rash); - Home Meds: 1. atorvastatin 80 mg oral tab 1 tab once daily (Last dose: 07/04/2016) 2. glipizide 10 mg Oral tr24 1 tab once daily (Last dose: 07/05/2016 08:00) 3. hydrochlorothiazide 12.5 mg Oral cap 1 cap once daily (Last dose: 07/05/2016 08:00) 4. Lamisil oral (Last dose: Unknown) 5. losartan-hydrochlorothiazide 50-12.5 mg oral tab 1 tab once daily (Last dose: 07/05/2016 08:00) 6. Prilosec 20 mg Oral cpDR 1 cap once daily (Last dose: 07/05/2016 08:00) 7. Singulair 10 mg Oral tab 1 tab nightly (Last dose: 07/04/2016 20:00) 8. Tradjenta 5 mg oral tab 1 tab once daily (Last dose: 07/05/2016 08:00) 9. Zoloft 100 mg Oral tab 1 tab once daily (Last dose: 07/05/2016 08:00) 10. Tylenol 325 mg Oral tab 2 tabs every 4-6 hours (Last dose: 07/04/2016) - PMHx: Hypertension; Hypercholesterolemia; Diabetes - NIDDM: uncontrolled; Depression; Asthma; - PSHx: Hysterectomy; "double vein ligation"; Cholecystectomy; - Social history: Smoking status: Patient states was never smoker of tobacco. Patient/guardian denies using alcohol, street drugs, No barriers to communication noted, The patient speaks fluent [place], Speaks appropriately for age. - Family history: Not pertinent. - : The pt / caregiver states he / she is not on anticoagulants. Home medication list is obtained from the patient. - Exposure Risk Screening:: None identified. Vital Signs: 07/05 12:40 BP 163 / 82; Pulse 75; Resp 16; Temp 96.7(O); Pulse Ox 98% on R/A; Weight 97.98 kg / lr2 216.01 lbs (R); Height 4 ft. 10 in. (147.32 cm) (R); Pain 10/10; 12:40 Body Mass Index 45.14 (97.98 kg, 147.32 cm) lr2 MDM: 13:53 [facility] [place] Payment Agreement was scanned into [employer] and attached to record. jp5 13:53 Financial registration complete. jp5 07/06 10:27 T-Sheet-- Draft Copy was scanned into [employer] and attached to record. gb Signatures: Alisson Mayfield, Reg Reg gb Jose Rafael Evans, RN RN mlb1 Filippo Harp PA PA btw Conner, Teresa RN RN ttb Rama Wiggins jp5 The chart was reviewed and I authenticate all verbal orders and agree with the evaluation and treatment provided.Attachments: 07/05 13:53 [facility] [place] Payment Agreement jp5 07/06 10:27 T-Sheet-- Draft Copy gb Chart Complete MTDD
--- NOTE | 2016-07-07 14:52 | EDDOCDS ---
Physician Documentation [facility] Name: Emma Mccarty Age: 65 yrs Sex: Female : 1950 Arrival Date: 07/05/2016 Time: 12:39 Bed TR7 Private MD: Machelle Dorsey NP Disposition: 07/05/16 13:42 Discharged to Home/Self Care. Impression: Sacroiliitis, not elsewhere classified, Low back pain. - Condition is Stable. - Discharge Instructions: Back Pain, Adult, [id number], Sacroiliac Joint Dysfunction. - Prescriptions for Robaxin- 750 750 mg Oral Tablet - take 1 tablet by ORAL route every 6 hours As needed; 40 tablet. etodolac 200 mg Oral Capsule - take 1 capsule by ORAL route 3 times per day; 30 capsule. - Medication Reconciliation, Local Pharmacy Hours form. - Follow up: Machelle Dorsey; When: Call to arrange an appointment; Reason: Further diagnostic work-up, Recheck today's complaints, Continuance of care. - Problem is new. - Symptoms are unchanged. Historical: - Allergies: Bees; Prozac (Rash); - Home Meds: 1. atorvastatin 80 mg oral tab 1 tab once daily (Last dose: 07/04/2016) 2. glipizide 10 mg Oral tr24 1 tab once daily (Last dose: 07/05/2016 08:00) 3. hydrochlorothiazide 12.5 mg Oral cap 1 cap once daily (Last dose: 07/05/2016 08:00) 4. Lamisil oral (Last dose: Unknown) 5. losartan-hydrochlorothiazide 50-12.5 mg oral tab 1 tab once daily (Last dose: 07/05/2016 08:00) 6. Prilosec 20 mg Oral cpDR 1 cap once daily (Last dose: 07/05/2016 08:00) 7. Singulair 10 mg Oral tab 1 tab nightly (Last dose: 07/04/2016 20:00) 8. Tradjenta 5 mg oral tab 1 tab once daily (Last dose: 07/05/2016 08:00) 9. Zoloft 100 mg Oral tab 1 tab once daily (Last dose: 07/05/2016 08:00) 10. Tylenol 325 mg Oral tab 2 tabs every 4-6 hours (Last dose: 07/04/2016) - PMHx: Hypertension; Hypercholesterolemia; Diabetes - NIDDM: uncontrolled; Depression; Asthma; - PSHx: Hysterectomy; "double vein ligation"; Cholecystectomy; - Social history: Smoking status: Patient states was never smoker of tobacco. Patient/guardian denies using alcohol, street drugs, No barriers to communication noted, The patient speaks fluent Tristanian, Speaks appropriately for age. - Family history: Not pertinent. - : The pt / caregiver states he / she is not on anticoagulants. Home medication list is obtained from the patient. - Exposure Risk Screening:: None identified. Vital Signs: 07/05 12:40 BP 163 / 82; Pulse 75; Resp 16; Temp 96.7(O); Pulse Ox 98% on R/A; Weight 97.98 kg / lr2 216.01 lbs (R); Height 4 ft. 10 in. (147.32 cm) (R); Pain 10/10; 12:40 Body Mass Index 45.14 (97.98 kg, 147.32 cm) lr2 MDM: 13:53 [facility] [place] Payment Agreement was scanned into [employer] and attached to record. jp5 13:53 Financial registration complete. jp5 07/06 10:27 T-Sheet-- Draft Copy was scanned into [employer] and attached to record. gb Signatures: Alisson Mayfield, Reg Reg gb Jose Rafael Evans, RN RN mlb1 Filippo Harp PA PA btw Conner, Teresa RN RN ttb Rama Wiggins jp5 The chart was reviewed and I authenticate all verbal orders and agree with the evaluation and treatment provided.Attachments: 07/05 13:53 [facility] [place] Payment Agreement jp5 07/06 10:27 T-Sheet-- Draft Copy gb Chart Complete MTDD
== END 2016-07-05 13:51 | disposition home or self-care (01) ==
LOC: M ED 12:39
DX: M54.5 Low back pain (principal); M46.1 Sacroiliitis, not elsewhere classified; I10 Essential (primary) hypertension; E11.9 Type 2 diabetes mellitus without complications; J45.909 Unspecified asthma, uncomplicated; E78.00 Pure hypercholesterolemia, unspecified; F32.9 Major depressive disorder, single episode, unspecified; E66.8 Other obesity; Z68.42 Body mass index [BMI] 45.0-49.9, adult; Z79.899 Other long term (current) drug therapy; Z79.84 Long term (current) use of oral hypoglycemic drugs; Z88.8 Allergy status to other drugs, medicaments and biological substances; Z91.030 Bee allergy status

== ENCOUNTER → 2016-07-09 | Outpatient (REF) | payer MEDICARE, MEDICAID ==
[2016-07-09 18:46] LABS: BASO % 0.6 % (0.0-1.0); EOS # 0.1 K/mm3 (0.0-0.50); EOS % 1.1 % (0.0-3.0); LARGE UNSTAINED CELL # 0.2 K/mm3 (0.0-0.4); LARGE UNSTAINED CELL % 2.2 % (0.0-4.0); LYMPH # 1.3 K/mm3 (1.5-4.5); LYMPH % 14.3 % (24.0-44.0); MEAN CORPUSCULAR HEMOGLOBIN 30.4 pg (27.0-33.0); MEAN CORPUSCULAR VOLUME 92.1 fl (80.0-96.0); MONO # 0.7 K/mm3 (0.0-0.8); MONO % 8.5 % (0.0-5.0); NEUTROPHILS # 6.4 K/mm3 (1.8-7.7); NEUTROPHILS % 73.4 % (36.0-66.0); PLATELET COUNT, AUTOMATED 311 k/mm3 (150-450); RED CELL DISTRIBUTION WIDTH 12.8 % (11.5-14.5); WHITE BLOOD COUNT 8.8 K/mm3 (4.0-10.0)
[2016-07-09 20:23] LABS: ERYTHROCYTE SEDIMENTATION RATE 58 mm/hr (0-30)
== END ==
LOC: M SFHCPLAZ 15:13
PROVIDERS: ATTEND Nurse Practitioner Family
DX: M54.5 Low back pain (principal)
CPT/HCPCS: 36415; 85025; 85652; 86038; 86431; G0463

== ENCOUNTER → 2016-07-10 | Outpatient (CLI) | payer MEDICARE, MEDICAID ==
--- NOTE | 2016-07-10 14:12 | REP ---
LUMBAR SPINE, FIVE VIEWS: HISTORY: Back pain. There is no acute fracture or subluxation. There is an old compression fracture of the L4 vertebral body with minimal height loss. The intervertebral discs are decreased in height, consistent with disc degeneration. Osteophytes are present throughout the lumbar spine. There is narrowing of the L4-5 and L5-S1 facet joints. Surgical clips are present in the right upper quadrant and pelvis. IMPRESSION: Degenerative change, as described above. Signed by Ari Hicks MD 07/10/2016 02:19 P
--- NOTE | 2016-07-10 14:17 | REP ---
BILATERAL HIPS, AP PELVIS, FIVE VIEWS: HISTORY: Right hip pain. There is no acute fracture or dislocation. The joint spaces are normal in appearance. IMPRESSION: There is no acute fracture or dislocation. Signed by Ari Hicks MD 07/10/2016 02:19 P
== END ==
LOC: M RAD 11:44
PROVIDERS: ATTEND Nurse Practitioner Family
DX: M54.5 Low back pain (principal); M25.551 Pain in right hip; M47.896 Other spondylosis, lumbar region

== ENCOUNTER 2016-08-06 12:15 | Outpatient (RCR) | payer MEDICARE, MEDICAID | END 2016-08-07 | LOC: M PT 12:15 | PROVIDERS: ATTEND Nurse Practitioner Family | DX: Z51.89 Encounter for other specified aftercare (principal); M54.5 Low back pain | CPT/HCPCS: 97110; 97140; 97162; G8978; G8979 ==

== ENCOUNTER 2016-08-13 13:02 | Outpatient (RCR) | payer MEDICARE, MEDICAID | END 2016-09-06 | LOC: M PT 13:02 | PROVIDERS: ATTEND Nurse Practitioner Family | DX: Z51.89 Encounter for other specified aftercare (principal); M54.5 Low back pain | CPT/HCPCS: 97110; G8979; G8980 ==

== ENCOUNTER → 2016-09-07 | Outpatient (REF) | payer MEDICARE, MEDICAID ==
[2016-09-07 16:49] LABS: ALBUMIN 3.4 GM/DL (3.2-5.2); ALBUMIN/GLOBULIN RATIO 0.97 (1.00-1.93); BILIRUBIN,DIRECT 0.2 MG/DL (0.0-0.2); BILIRUBIN,TOTAL 0.6 MG/DL (0.2-1.0); CREATININE FOR GFR 1.01 MG/DL (0.55-1.02); GLOMERULAR FILTRATION RATE 58.7 (>45); PHOSPHORUS LEVEL 3.1 MG/DL (2.5-4.9); POTASSIUM SERUM 4.5 MEQ/L (3.5-5.1); TOTAL PROTEIN 6.9 GM/DL (6.4-8.2)
[2016-09-07 17:22] LABS: MEAN CORPUSCULAR HEMOGLOBIN 31.6 pg (27.0-33.0); MEAN CORPUSCULAR HGB CONC 33.3 g/dl (32.0-36.5); WHITE BLOOD COUNT 7.1 K/mm3 (4.0-10.0)
== END ==
LOC: M LABDRAWP 15:39
PROVIDERS: ATTEND Podiatrist Foot & Ankle Surgery
DX: Z51.81 Encounter for therapeutic drug level monitoring (principal); Z79.899 Other long term (current) drug therapy

== ENCOUNTER → 2016-09-24 | Outpatient (REF) | payer MEDICARE, MEDICAID ==
[2016-09-24 12:16] LABS: ALBUMIN 3.3 GM/DL (3.2-5.2); ALBUMIN/GLOBULIN RATIO 1.03 (1.00-1.93); BILIRUBIN,TOTAL 0.5 MG/DL (0.2-1.0); CALCIUM LEVEL 8.5 MG/DL (8.8-10.2); CREATININE FOR GFR 1.12 MG/DL (0.55-1.02); GLOMERULAR FILTRATION RATE 52.1 (>45); POTASSIUM SERUM 4.2 MEQ/L (3.5-5.1); TOTAL PROTEIN 6.5 GM/DL (6.4-8.2)
== END ==
LOC: M SFHCPLAZ 08:02
PROVIDERS: ATTEND Nurse Practitioner Family
DX: E11.65 Type 2 diabetes mellitus with hyperglycemia (principal)

== ENCOUNTER → 2016-12-28 | Outpatient (REF) | payer MEDICARE, MEDICAID ==
[2016-12-28 11:57] LABS: ALBUMIN 3.6 GM/DL (3.2-5.2); ALBUMIN/GLOBULIN RATIO 1.09 (1.00-1.93); BILIRUBIN,TOTAL 0.7 MG/DL (0.2-1.0); CALCIUM LEVEL 9.1 MG/DL (8.8-10.2); CREATININE FOR GFR 1.11 MG/DL (0.55-1.02); GLOMERULAR FILTRATION RATE 52.5 (>45); POTASSIUM SERUM 3.7 MEQ/L (3.5-5.1); TOTAL PROTEIN 6.9 GM/DL (6.4-8.2)
== END ==
LOC: M LABDRAWP 10:00
PROVIDERS: ATTEND Nurse Practitioner Family
DX: E11.65 Type 2 diabetes mellitus with hyperglycemia (principal)

== ENCOUNTER → 2017-03-24 | Outpatient (REF) | payer MEDICARE ==
[2017-03-24 12:41] LABS: ALBUMIN 3.3 GM/DL (3.2-5.2); ALBUMIN/GLOBULIN RATIO 1.06 (1.00-1.93); BILIRUBIN,TOTAL 0.5 MG/DL (0.2-1.0); CALCIUM LEVEL 9.3 MG/DL (8.8-10.2); CREATININE FOR GFR 1.1 MG/DL (0.55-1.02); GLOMERULAR FILTRATION RATE 53.1 (>45); POTASSIUM SERUM 4.3 MEQ/L (3.5-5.1); TOTAL PROTEIN 6.4 GM/DL (6.4-8.2)
== END ==
LOC: M SFHCPLAZ 08:34
PROVIDERS: ATTEND Nurse Practitioner Family
DX: N18.3 Chronic kidney disease, stage 3 (moderate) (principal); E11.65 Type 2 diabetes mellitus with hyperglycemia

== ENCOUNTER → 2017-08-10 | Outpatient (REF) | payer MEDICARE ==
[2017-08-10 12:13] LABS: ALBUMIN 3.4 GM/DL (3.2-5.2); ALBUMIN/GLOBULIN RATIO 1.06 (1.00-1.93); ALKALINE PHOSPHATASE 95 U/L (45-117); ALT/SGPT 31 U/L (12-78); ANION GAP 5 MEQ/L (8-16); AST/SGOT 26 U/L (7-37); BILIRUBIN,TOTAL 0.6 MG/DL (0.2-1.0); BLOOD UREA NITROGEN 17 MG/DL (7-18); CALCIUM LEVEL 9.2 MG/DL (8.8-10.2); CARBON DIOXIDE LEVEL 31 MEQ/L (21-32); CHLORIDE LEVEL 107 MEQ/L (98-107); CHOLESTEROL LEVEL 149 MG/DL (<200); CHOLESTEROL RISK RATIO 2.483 (<5); CREATININE FOR GFR 1.05 MG/DL (0.55-1.30); GLUCOSE, FASTING 129 MG/DL (70-100); HDL CHOLESTEROL 60 MG/DL (>40); NON-HDL-C 89 MG/DL; POTASSIUM SERUM 3.8 MEQ/L (3.5-5.1); SODIUM LEVEL 143 MEQ/L (136-145); TOTAL PROTEIN 6.6 GM/DL (6.4-8.2); TRIGLYCERIDES LEVEL 130 MG/DL (<150)
[2017-08-10 12:36] LABS: MALB URINE SIEMENS 9.3 MG/L; MAU/CREAT RATIO 7.4 MCG/MG (0.0-30.0)
[2017-08-10 14:18] LABS: ESTIMATED AVERAGE GLUCOSE 180 MG/DL (60-110); HEMOGLOBIN A1c 7.9 %
== END ==
LOC: M SFHCPLAZ 09:14
DX: E11.65 Type 2 diabetes mellitus with hyperglycemia (principal); E78.2 Mixed hyperlipidemia
CPT/HCPCS: 80053

== ENCOUNTER → 2017-09-10 | Outpatient (CLI) | payer MEDICARE | LOC: M WHC 12:04 | DX: Z12.31 Encounter for screening mammogram for malignant neoplasm of breast (principal); Z78.0 Asymptomatic menopausal state; Z85.40 Personal history of malignant neoplasm of unspecified female genital organ | CPT/HCPCS: 77067 ==

== ENCOUNTER → 2017-12-20 | Outpatient (REF) | payer OTHER ==
[2017-12-20 12:27] LABS: TOTAL 25(OH) VITAMIN D 36.7 NG/ML (30.0-100.0)
[2017-12-20 13:35] LABS: MALB URINE SIEMENS 21.3 MG/L; MAU/CREAT RATIO 9.4 MCG/MG (0.0-30.0)
[2017-12-20 13:53] LABS: ALBUMIN 3.4 GM/DL (3.2-5.2); ALKALINE PHOSPHATASE 93 U/L (45-117); ALT/SGPT 36 U/L (12-78); ANION GAP 8 MEQ/L (8-16); AST/SGOT 29 U/L (7-37); BILIRUBIN,TOTAL 0.7 MG/DL (0.2-1.0); BLOOD UREA NITROGEN 17 MG/DL (7-18); CALCIUM LEVEL 9.3 MG/DL (8.8-10.2); CARBON DIOXIDE LEVEL 29 MEQ/L (21-32); CHLORIDE LEVEL 107 MEQ/L (98-107); FREE T4 1.05 NG/DL (0.76-1.46); GLOMERULAR FILTRATION RATE 47.8 (>45); GLUCOSE, FASTING 188 MG/DL (70-100); POTASSIUM SERUM 4.4 MEQ/L (3.5-5.1); SODIUM LEVEL 144 MEQ/L (136-145); TOTAL PROTEIN 6.8 GM/DL (6.4-8.2)
[2017-12-20 16:22] LABS: ESTIMATED AVERAGE GLUCOSE 177 MG/DL (60-110); HEMOGLOBIN A1c 7.8 %
== END ==
LOC: M SFHCPLAZ 09:08
DX: E11.9 Type 2 diabetes mellitus without complications (principal); E78.2 Mixed hyperlipidemia; E11.65 Type 2 diabetes mellitus with hyperglycemia; E55.9 Vitamin D deficiency, unspecified
CPT/HCPCS: 84443

== ENCOUNTER → 2018-03-22 | Outpatient (REF) | payer OTHER ==
[2018-03-22 12:49] LABS: ALBUMIN 3.5 GM/DL (3.2-5.2); ALBUMIN/GLOBULIN RATIO 1.13 (1.00-1.93); ALKALINE PHOSPHATASE 83 U/L (45-117); ALT/SGPT 30 U/L (12-78); ANION GAP 7 MEQ/L (8-16); AST/SGOT 25 U/L (7-37); BILIRUBIN,TOTAL 0.5 MG/DL (0.2-1.0); BLOOD UREA NITROGEN 16 MG/DL (7-18); CALCIUM LEVEL 8.9 MG/DL (8.8-10.2); CARBON DIOXIDE LEVEL 32 MEQ/L (21-32); CHLORIDE LEVEL 105 MEQ/L (98-107); CREATININE FOR GFR 1.03 MG/DL (0.55-1.30); GLOMERULAR FILTRATION RATE 57.1 (>45); GLUCOSE, FASTING 121 MG/DL (70-100); POTASSIUM SERUM 3.8 MEQ/L (3.5-5.1); SODIUM LEVEL 144 MEQ/L (136-145); TOTAL PROTEIN 6.6 GM/DL (6.4-8.2)
[2018-03-22 13:44] LABS: ESTIMATED AVERAGE GLUCOSE 143 MG/DL (60-110); HEMOGLOBIN A1c 6.6 %
== END ==
LOC: M SFHCPLAZ 08:14
DX: E11.65 Type 2 diabetes mellitus with hyperglycemia (principal)
CPT/HCPCS: 80053

== ENCOUNTER → 2018-07-12 | Outpatient (REF) | payer MEDICARE ==
[2018-07-12 12:27] LABS: MALB URINE SIEMENS 27.6 MG/L; MAU/CREAT RATIO 23.1 MCG/MG (0.0-30.0)
[2018-07-12 12:47] LABS: HEMOGLOBIN A1c 7.8 %
[2018-07-12 12:59] LABS: ALBUMIN 3.5 GM/DL (3.2-5.2); BILIRUBIN,TOTAL 0.7 MG/DL (0.2-1.0); CHOLESTEROL RISK RATIO 3.509 (<5); CREATININE FOR GFR 1.02 MG/DL (0.55-1.30); GLOMERULAR FILTRATION RATE 57.7 (>45); POTASSIUM SERUM 3.9 MEQ/L (3.5-5.1)
== END ==
LOC: M SFHCPLAZ 08:42
PROVIDERS: ATTEND Nurse Practitioner Family
DX: E11.9 Type 2 diabetes mellitus without complications (principal); E78.2 Mixed hyperlipidemia

== ENCOUNTER → 2018-09-12 | Outpatient (CLI) | payer MEDICARE ==
--- NOTE | 2018-09-12 16:31 | REPMRS ---
Patient History The patient states she had a clinical breast exam in 09/2018. Patient is postmenopausal, has history of endometrial cancer at age 51, had previous chemotherapy at age 51, and is nulliparous. Family history of endometrial cancer at age 50 or over in mother. No Hormone Replacement Therapy 3D TOMOSYNTHESIS WAS PERFORMED. Digital Woman Screen Mammo: September 12, 2018 - Exam #: [id number] Bilateral CC and MLO view(s) were taken. Technologist: Marian Jacobo, Technologist Prior study comparison: September 10, 2017, digital woman screen mammo performed at [facility]. May 28, 2016, digital woman screen mammo performed at [facility]. FINDINGS: There are scattered fibroglandular densities. There has been no change in the appearance of the mammogram from the prior studies. There is a mild amount of residual fibroglandular tissue which is fairly symmetric. There is no interval development of dominant mass, architectural distortion, or clustered microcalcification suggestive of malignancy. Assessment: BI-RADS/ACR category 1 mammogram. Negative Mammogram. Recommendation Routine screening mammogram in 1 year (for women over age 40). This mammogram was interpreted with the aid of an FDA-approved computer-aided dectection system. Electronically Signed By: Chas Winn MD 09/12/18 [id number]
== END ==
LOC: M WHC 11:33
PROVIDERS: ATTEND Nurse Practitioner Family
DX: Z12.31 Encounter for screening mammogram for malignant neoplasm of breast (principal); Z78.0 Asymptomatic menopausal state; Z85.40 Personal history of malignant neoplasm of unspecified female genital organ; Z92.21 Personal history of antineoplastic chemotherapy
CPT/HCPCS: 77063; 77067; G0463

== ENCOUNTER → 2018-09-16 | Outpatient (REF) | payer MEDICARE ==
[2018-09-16 12:28] LABS: CALCIUM LEVEL 8.9 MG/DL (8.8-10.2); GLOMERULAR FILTRATION RATE 59.1 (>45); POTASSIUM SERUM 4.3 MEQ/L (3.5-5.1)
[2018-09-16 12:29] LABS: ALBUMIN 3.1 GM/DL (3.2-5.2); BILIRUBIN,TOTAL 0.7 MG/DL (0.2-1.0); TOTAL PROTEIN 6.4 GM/DL (6.4-8.2)
== END ==
LOC: M SFHCPLAZ 08:29
PROVIDERS: ATTEND Nurse Practitioner Family
DX: E11.9 Type 2 diabetes mellitus without complications (principal)

== ENCOUNTER → 2018-12-15 | Outpatient (REF) | payer OTHER ==
[2018-12-15 10:55] LABS: HEMOGLOBIN A1c 7.5 %
[2018-12-15 11:07] LABS: ALBUMIN 3.6 GM/DL (3.2-5.2); BILIRUBIN,TOTAL 1.2 MG/DL (0.2-1.0); CALCIUM LEVEL 9.4 MG/DL (8.8-10.2); CREATININE FOR GFR 1.05 MG/DL (0.55-1.30); GLOMERULAR FILTRATION RATE 55.7 (>45); POTASSIUM SERUM 3.8 MEQ/L (3.5-5.1); TOTAL PROTEIN 6.7 GM/DL (6.4-8.2)
== END ==
LOC: M SFHCPLAZ 08:44
PROVIDERS: ATTEND Nurse Practitioner Family
DX: E11.9 Type 2 diabetes mellitus without complications (principal)

== ENCOUNTER → 2019-04-18 | Outpatient (REF) | payer OTHER ==
[2019-04-18 13:28] LABS: ALBUMIN 3.5 GM/DL (3.2-5.2); BILIRUBIN,TOTAL 1.1 MG/DL (0.2-1.0); CALCIUM LEVEL 9.5 MG/DL (8.8-10.2); CHOLESTEROL RISK RATIO 2.705 (<5); CREATININE FOR GFR 1.08 MG/DL (0.55-1.30); FREE T4 1.03 NG/DL (0.76-1.46); GLOMERULAR FILTRATION RATE 53.9 (>45); THYROID STIMULATING HORMONE 1.57 uIU/ML (0.358-3.740); TOTAL PROTEIN 6.8 GM/DL (6.4-8.2)
[2019-04-18 13:37] LABS: TOTAL 25(OH) VITAMIN D 35.5 NG/ML (30.0-100.0)
[2019-04-18 13:49] LABS: CREATININE, URINE 98.2 MG/DL; MALB URINE SIEMENS 17.4 MG/L; MAU/CREAT RATIO 17.7 MCG/MG (0.0-30.0)
[2019-04-18 14:20] LABS: HEMOGLOBIN A1c 7.1 %
== END ==
LOC: M SFHCPLAZ 09:35
PROVIDERS: ATTEND Nurse Practitioner Family
DX: E11.9 Type 2 diabetes mellitus without complications (principal); E78.2 Mixed hyperlipidemia; E55.9 Vitamin D deficiency, unspecified

== ENCOUNTER → 2019-06-27 | Outpatient (CLI) | payer MEDICARE ==
--- NOTE | 2019-07-03 14:43 | REP ---
Clinical: Left lower extremity pain and swelling . Technique: Winn scale and color Doppler evaluation using linear high frequency transducer. Findings: Ultrasound examination of the left lower extremity deep venous structures from the common femoral vein to the popliteal vein demonstrates normal compressibility flow and wave patterns in response to respiration and augmentation. There is no evidence for deep venous thrombosis. Greater saphenous vein is thrombosed and consistent with prior procedure. Impression: No evidence for deep venous thrombosis. Electronically Signed by Bharat Orr MD 06/27/2019 03:18 P
== END ==
LOC: M RAD 14:42
PROVIDERS: ATTEND Nurse Practitioner Family
DX: R60.0 Localized edema (principal)
CPT/HCPCS: 93971; G0463

== ENCOUNTER → 2019-06-27 | Outpatient (CLI) | payer MEDICARE | LOC: M WHC 14:49 | PROVIDERS: ATTEND Nurse Practitioner Family | DX: R60.0 Localized edema (principal); Z53.8 Procedure and treatment not carried out for other reasons ==

== ENCOUNTER → 2019-07-11 | Outpatient (POV) | payer MEDICARE ==
[~2019-07-11] VITALS: Ht 147.3 cm; Wt 95.9 kg
[~2019-07-11] MED LIST changes: +ISOVUE-300 61% 50ML VIAL (Q9967) As Ordered ONE
[2019-07-11 09:15] VITALS: BP 133/64
--- NOTE | 2019-07-12 08:32 | IRCOV ---
[facility] IR Consult Office Visit IR Consult Office Visit DATE: Jul 11, 2019 [facility] IR Consult Office Visit IR Consult Office Visit DATE: Jul 11, 2019 REASON FOR CONSULTATION/CHIEF COMPLAINT: Varicose veins. HISTORY OF PRESENT ILLNESS: 68-year-old female with left lower extremity pain. Pain is off and on for last 5 days and associated with swelling. She had an ultrasound which showed no DVT. She has a long history of bilateral lower extremity pain and swelling associated with dry itchy skin and varicose veins. She reports left lower extremity vein ligation [address] rodríguez, for pain and was told that " it didn't work". She does wear compression stockings but suffers with blisters associated with compression stockings. No prior ulcers. No deep vein thrombosis. No intermittent claudication or rest pain. She is on her feet all day. ALLERGIES: Please see below. HOME MEDICATIONS: Please see below. PAST MEDICAL HISTORY: Hypertension Hyperlipidemia Diabetes Asthma Osteoporosis Uterine cancer Cervical cancer Kidney disease PAST SURGICAL HISTORY: Cholecystectomy Vein ligation 2002 Hysterectomy Pelvic radiation Left leg wound debridement Colonoscopy and polyp resection FAMILY HISTORY: Noncontributory. SOCIAL HISTORY: Nonsmoker. No alcohol or drugs. REVIEW OF SYSTEMS: Otherwise negative. PHYSICAL EXAMINATION: VITAL SIGNS: Please see below. GENERAL APPEARANCE: Appears well. Comfortable at rest. HEENT: No scleral icterus. RESPIRATORY: Normal breathing at rest. CARDIOVASCULAR: Normal rate. ABDOMEN: Soft nontender. EXTREMITIES: Left lower extremity: Mild edema. visible varicose veins. Hemosiderin deposition about the tibia and early lipodermatosclerosis. Warm to touch. DP/PT + Right lower extremity; varicose eczema. Small area of hemosiderin deposition. Varicose veins. Warm to touch. DP/PT + NEUROLOGICAL: Alert and oriented. PSYCHIATRIC: Appropriate to circumstance. LABORATORY DATA: Please see below. Imaging: I personally reviewed the deep vein study from June 2019. No deep vein thrombosis in the left lower extremity. There is focal mild left distal popliteal vein thickening in region of tenderness and non compressibility without visible thrombus. ASSESSMENT/PLAN: 68-year-old female with bilateral lower extremity pain left greater than right associated with signs of CEAP 4 venous hypertension. I will obtain bilateral lower extremity venous reflux study to evaluate for incompetent superficial veins. We've scheduled the patient for ultrasound and also ordered bilateral thigh-high stockings for the patient to wear. I spent 30 minutes in consultation with the patient. Thank you for this referral. CC Machelle Willian Allergies Coded Allergies: MS - Bee Venom (Verified Allergy, Unknown, 08/10/12) MS - Fluoxetine (Verified Allergy, Unknown, RASH, 08/10/12) Home Medications Scheduled (Astelin), 2 SPRAYS NA DAILY, (Reported) (Clindamycin Hcl), 300 MG PO Q6H, (Reported) Acetaminophen (Tylenol), 650 MG PO Q4HP, (Reported) Albuterol (Albuterol), 2 PUFFS INH Q6HP, (Reported) Aspirin (Aspirin EC), 81 MG PO DAILY, (Reported) Budesonide/Formoterol (Symbicort 160-4.5 Mcg Inhaler), 1 PUFF INH DAILY, (Reported) Calcium Carbonate/Vitamin D3 (Calcium 600-Vit D3 200 Tablet), 600 MG PO DAILY, (Reported) Doxycycline Hyclate (Doxycycline Hyclate), 100 MG PO BID, (Reported) Ergocalciferol (Vitamin D2) (Drisdol), 50,000 UNT PO QWEEK, (Reported) Losartan/Hydrochlorothiazide (Hyzaar 100-12.5 Tablet), 1 TAB PO DAILY, (Reported) Metformin HCl (Glucophage), 500 MG PO DAILY, (Reported) Montelukast Sodium (Singulair), 10 MG PO QHS, (Reported) Multivitamin (Multivitamins), 1 TAB PO DAILY, (Reported) Omeprazole (Omeprazole), 20 MG PO Q24HP, (Reported) Pravastatin Sodium (Pravachol), 40 MG PO QHS, (Reported) Sertraline HCl (Zoloft), 100 MG PO DAILY, (Reported) Sulfamethoxazole/Trimethoprim (Bactrim 400-80 mg Tablet), 1 TAB PO BID, (Reported) Vitamin D (Vitamin D), 1,000 UNITS PO DAILY, (Reported) [Epi Pen], 0.01 MG SC PRN, (Reported) Miscellaneous Medications Doxycycline Monohydrate (Doxycycline Monohydrate), 150 MG PO, (Reported) VS, I&O, 24H, Fishbone Vital Signs/I&O Vital Signs Date Time Temp Pulse Resp B/P (MAP) Pulse Ox O2 Delivery O2 Flow Rate FiO2 07/11/19 09:15 97.2 72 18 133/64 (87) 99 Room Air KELSEY MIR MD Jul 12, 2019 08:31 Allergies Coded Allergies: MS - Bee Venom (Verified Allergy, Unknown, 08/10/12) MS - Fluoxetine (Verified Allergy, Unknown, RASH, 08/10/12) Home Medications Scheduled (Astelin), 2 SPRAYS NA DAILY, (Reported) (Clindamycin Hcl), 300 MG PO Q6H, (Reported) Acetaminophen (Tylenol), 650 MG PO Q4HP, (Reported) Albuterol (Albuterol), 2 PUFFS INH Q6HP, (Reported) Aspirin (Aspirin EC), 81 MG PO DAILY, (Reported) Budesonide/Formoterol (Symbicort 160-4.5 Mcg Inhaler), 1 PUFF INH DAILY, (Rep orted) Calcium Carbonate/Vitamin D3 (Calcium 600-Vit D3 200 Tablet), 600 MG PO DAILY, (Reported) Doxycycline Hyclate (Doxycycline Hyclate), 100 MG PO BID, (Reported) Ergocalciferol (Vitamin D2) (Drisdol), 50,000 UNT PO QWEEK, (Reported) Losartan/Hydrochlorothiazide (Hyzaar 100-12.5 Tablet), 1 TAB PO DAILY, (Reported) Metformin HCl (Glucophage), 500 MG PO DAILY, (Reported) Montelukast Sodium (Singulair), 10 MG PO QHS, (Reported) Multivitamin (Multivitamins), 1 TAB PO DAILY, (Reported) Omeprazole (Omeprazole), 20 MG PO Q24HP, (Reported) Pravastatin Sodium (Pravachol), 40 MG PO QHS, (Reported) Sertraline HCl (Zoloft), 100 MG PO DAILY, (Reported) Sulfamethoxazole/Trimethoprim (Bactrim 400-80 mg Tablet), 1 TAB PO BID, (Reported) Vitamin D (Vitamin D), 1,000 UNITS PO DAILY, (Reported) [Epi Pen], 0.01 MG SC PRN, (Reported) Miscellaneous Medications Doxycycline Monohydrate (Doxycycline Monohydrate), 150 MG PO, (Reported) VS, I&O, 24H, Fishbone Vital Signs/I&O Vital Signs Date Time Temp Pulse Resp B/P (MAP) Pulse Ox O2 Delivery O2 Flow Rate FiO2 07/11/19 09:15 97.2 72 18 133/64 (87) 99 Room Air KELSEY MIR MD Jul 12, 2019 08:32
== END ==
LOC: M IRPOV 08:57
PROVIDERS: ATTEND Radiology Diagnostic Radiology
DX: M79.604 Pain in right leg (principal); M79.605 Pain in left leg; I10 Essential (primary) hypertension; E78.5 Hyperlipidemia, unspecified; E11.9 Type 2 diabetes mellitus without complications; J45.909 Unspecified asthma, uncomplicated; M81.0 Age-related osteoporosis without current pathological fracture; N18.9 Chronic kidney disease, unspecified; Z85.41 Personal history of malignant neoplasm of cervix uteri; Z86.010 Personal history of colon polyps; Z90.710 Acquired absence of both cervix and uterus

== ENCOUNTER → 2019-07-20 | Outpatient (CLI) | payer MEDICARE ==
[~2019-07-20] MED LIST changes: -ISOVUE-300 61% 50ML VIAL (Q9967) As Ordered ONE
--- NOTE | 2019-07-20 11:56 | REP ---
Bilateral lower extremity venous reflux Doppler duplex ultrasound: The the patient states she has had surgical aeration of both lower legs. She states the veins have been" clipped and tied." Right the Lower Extremity : Positive reflux is greater than 0.5 seconds. Reflux mm time CFV Reflux yes 2 sec Ant. Acc. GSV Present yes Reflux yes -- 2 sec Greater saph/fem junction no -- -- Greater saph vein mid thigh no -- -- Greater saph vein at knee no -- -- SFV PROX no SFV MID no SFV DISTAL no POPLITEAL VEIN no LSV no 2 mm -- Impression: There is reflux in the common femoral vein with the the patient standing for a duration of only 2 seconds. No venous thrombosis is identified. The greater saphenous vein from mid thigh to knee is not visualized and have possibly been removed. Left Lower Extremity : Positive reflux is greater than 0.5 seconds. Reflux mm time CFV Reflux no Ant. Acc. GSV mm time Present no Reflux no Greater saph/fem junction yes 6.0 9 seconds Greater saph vein mid thigh clotted 5.0 -- Greater saph vein at knee clotted 5.0 -- SFV PROX no SFV MID no SFV DISTAL no POPLITEAL VEIN no LSV no 3.0 -- Impression: There is reflux at the greater saphenous vein/femoral vein junction, or a duration of nine seconds. There is intraluminal thrombus in the mid to distal greater saphenous vein. Electronically Signed by Chas Barker MD 07/20/2019 11:47 A
--- NOTE | 2019-07-25 09:31 | IRPN ---
[facility] IR Progress Note IR Progress Note DATE: Jul 25, 2019 Patient informed that US bilateral lower extremity is negative for superficial reflux. No EVLT indicated. Thank you for this referral Allergies Coded Allergies: MS - Bee Venom (Verified Allergy, Unknown, 08/10/12) MS - Fluoxetine (Verified Allergy, Unknown, RASH, 08/10/12) KELSEY MIR MD Jul 25, 2019 09:31
== END ==
LOC: M RAD 09:28
PROVIDERS: ATTEND Radiology Diagnostic Radiology
DX: I83.813 Varicose veins of bilateral lower extremities with pain (principal)

== ENCOUNTER → 2020-07-05 | Outpatient (REF) | payer MEDICARE ==
[2020-07-05 12:55] LABS: ALBUMIN 3.3 GM/DL (3.2-5.2); BILIRUBIN,TOTAL 0.4 MG/DL (0.2-1.0); CALCIUM LEVEL 9.3 MG/DL (8.8-10.2); CREATININE FOR GFR 1.21 MG/DL (0.55-1.30); GLOMERULAR FILTRATION RATE 47.1 (>45); POTASSIUM SERUM 4.3 MEQ/L (3.5-5.1); TOTAL 25(OH) VITAMIN D 25.7 NG/ML (30.0-100.0); TOTAL PROTEIN 6.8 GM/DL (6.4-8.2)
[2020-07-05 13:53] LABS: HEMOGLOBIN A1c > 14.0 %
[2020-07-05 15:26] LABS: CREATININE, URINE 69.7 MG/DL; MALB URINE SIEMENS 29.1 MG/L; MAU/CREAT RATIO 41.7 MCG/MG (0.0-30.0)
== END ==
LOC: M SFHCPLAZ 09:58
PROVIDERS: ATTEND Nurse Practitioner Family
DX: R30.0 Dysuria (principal); E11.65 Type 2 diabetes mellitus with hyperglycemia; E55.9 Vitamin D deficiency, unspecified
CPT/HCPCS: 36415; 80053; 82043; 82306; 83036; 87088; 87186; G0463

== ENCOUNTER → 2020-08-05 | Outpatient (CLI) | payer MEDICARE ==
--- NOTE | 2020-08-05 12:23 | REPMRS ---
Patient History The patient states she has not had a clinical breast exam in over a year. Family history of endometrial cancer at age 50 or over in mother. No Hormone Replacement Therapy Digital Woman Screen Mammo: August 05, 2020 - Exam #: [id number] Bilateral CC and MLO view(s) were taken. Technologist: Sherine Boothe Technologist Prior study comparison: September 12, 2018, bilateral digital woman screen mammo performed at [facility]. September 10, 2017, digital woman screen mammo performed at [facility]. May 28, 2016, digital woman screen mammo performed at [facility]. FINDINGS: There are scattered fibroglandular densities. The Volpara volumetric breast density category is:B. There has been no change in the appearance of the mammogram from the prior studies. There is a mild amount of scattered fibroglandular density which is fairly symmetric. There is no interval development of dominant mass, architectural distortion, or grouped microcalcification suggestive of malignancy. 3-D tomosynthesis shows no additional findings. Assessment: BI-RADS/ACR category 1 mammogram. Negative Mammogram. Recommendation Routine screening mammogram of both breasts in 1 year (for women over age 40). This patient's [facility] Lifetime Breast Cancer Risk is estimated at 7.1 %. This mammogram was interpreted with the aid of an FDA-approved computer-aided dectection system. Electronically Signed By: Eren Garcia MD 08/05/20 [id number]
== END ==
LOC: M WHC 11:04
PROVIDERS: ATTEND Nurse Practitioner Family
DX: Z12.31 Encounter for screening mammogram for malignant neoplasm of breast (principal)

== ENCOUNTER → 2020-08-27 | Outpatient (REF) | payer MEDICARE ==
[2020-08-27 15:20] LABS: ALBUMIN 3.2 GM/DL (3.2-5.2); BILIRUBIN,TOTAL 0.6 MG/DL (0.2-1.0); CALCIUM LEVEL 8.8 MG/DL (8.8-10.2); CHOLESTEROL RISK RATIO 2.04 (<5); CREATININE FOR GFR 0.99 MG/DL (0.55-1.30); GLOMERULAR FILTRATION RATE 59.4 (>45); POTASSIUM SERUM 3.8 MEQ/L (3.5-5.1); TOTAL PROTEIN 6.5 GM/DL (6.4-8.2)
[2020-08-27 15:32] LABS: MAU/CREAT RATIO 27.3 MCG/MG (0.0-30.0)
[2020-08-27 16:43] LABS: HEMOGLOBIN A1c 9.3 %
== END ==
LOC: M PLALAB 12:01
PROVIDERS: ATTEND Nurse Practitioner Family
DX: E11.65 Type 2 diabetes mellitus with hyperglycemia (principal); E78.2 Mixed hyperlipidemia

== ENCOUNTER → 2020-11-26 | Outpatient (CLI) | payer MEDICARE ==
[2020-11-26 17:58] LABS: HEMOGLOBIN A1c 6.3 %
[2020-11-26 18:15] LABS: ALBUMIN 3.6 GM/DL (3.2-5.2); BILIRUBIN,TOTAL 0.7 MG/DL (0.2-1.0); CALCIUM LEVEL 9.2 MG/DL (8.8-10.2); CREATININE FOR GFR 1.2 MG/DL (0.55-1.30); GLOMERULAR FILTRATION RATE 47.4 (>45); POTASSIUM SERUM 3.9 MEQ/L (3.5-5.1); TOTAL 25(OH) VITAMIN D 63.9 NG/ML (30.0-100.0); TOTAL PROTEIN 6.8 GM/DL (6.4-8.2)
== END ==
LOC: M PLALAB 14:12
PROVIDERS: ATTEND Nurse Practitioner Family
DX: E55.9 Vitamin D deficiency, unspecified (principal); E11.65 Type 2 diabetes mellitus with hyperglycemia

== ENCOUNTER → 2021-02-12 | Outpatient (CLI) | payer MEDICARE ==
[2021-02-12 16:37] LABS: CALCIUM LEVEL 9.9 MG/DL (8.8-10.2); CREATININE FOR GFR 1.23 MG/DL (0.55-1.30); GLOMERULAR FILTRATION RATE 46.1 (>45); POTASSIUM SERUM 4.1 MEQ/L (3.5-5.1)
[2021-02-12 16:49] LABS: TOTAL 25(OH) VITAMIN D 57.9 NG/ML (30.0-100.0)
[2021-02-12 18:42] LABS: HEMOGLOBIN A1c 5.9 %
== END ==
LOC: M PLALAB 12:14
PROVIDERS: ATTEND Nurse Practitioner Family
DX: E11.42 Type 2 diabetes mellitus with diabetic polyneuropathy (principal); I12.9 Hypertensive chronic kidney disease with stage 1 through stage 4 chronic kidney disease, or unspecified chronic kidney disease; N18.31 Chronic kidney disease, stage 3a; E55.9 Vitamin D deficiency, unspecified
CPT/HCPCS: 36415; 80048; 82306; 83036; G0463

== ENCOUNTER → 2022-02-03 | Outpatient (CLI) | payer MEDICARE ==
[2022-02-03 14:11] LABS: BASO % 0.7 % (0.0-1.0); EOS # 0.1 10^3/uL (0.0-0.5); EOS % 2.4 % (0.0-3.0); HEMATOCRIT 33.3 % (36.0-47.0); HEMOGLOBIN 10.6 g/dl (12.0-15.5); LYMPH # 1.5 10^3/uL (1.5-5.0); LYMPH % 24.9 % (24.0-44.0); MEAN CORPUSCULAR HEMOGLOBIN 31.7 pg (27.0-33.0); MEAN CORPUSCULAR HGB CONC 31.8 g/dl (32.0-36.5); MEAN CORPUSCULAR VOLUME 99.7 fl (80.0-96.0); MONO # 0.7 10^3/uL (0.0-0.8); MONO % 12.1 % (2.0-8.0); NEUTROPHILS # 3.6 10^3/uL (1.5-8.5); NEUTROPHILS % 59.6 % (36.0-66.0); PLATELET COUNT, AUTOMATED 229 10^3/uL (150-450); RED BLOOD COUNT 3.34 10^6/uL (4.00-5.40)
[2022-02-03 14:36] LABS: ALBUMIN 3.2 GM/DL (3.2-5.2); BILIRUBIN,TOTAL 0.7 MG/DL (0.2-1.0); CALCIUM LEVEL 9.3 MG/DL (8.8-10.2); CREATININE FOR GFR 1.09 MG/DL (0.55-1.30); GLOMERULAR FILTRATION RATE 52.8 (>39); POTASSIUM SERUM 4.3 MEQ/L (3.5-5.1); TOTAL PROTEIN 6.2 GM/DL (6.4-8.2)
[2022-02-03 15:06] LABS: PTH INTACT 18.8 PG/ML (18.5-88.0); TOTAL 25(OH) VITAMIN D 51.7 NG/ML (30.0-100.0)
[2022-02-03 15:21] LABS: HEMOGLOBIN A1c 6.2 %
== END ==
LOC: M PLALAB 10:43
PROVIDERS: ATTEND Physician Assistant Medical
DX: E11.42 Type 2 diabetes mellitus with diabetic polyneuropathy (principal); I12.9 Hypertensive chronic kidney disease with stage 1 through stage 4 chronic kidney disease, or unspecified chronic kidney disease; N18.31 Chronic kidney disease, stage 3a; E11.22 Type 2 diabetes mellitus with diabetic chronic kidney disease; E55.9 Vitamin D deficiency, unspecified

== ENCOUNTER → 2022-05-25 | Outpatient (CLI) | payer MEDICARE ==
[2022-05-25 17:34] LABS: ALBUMIN 3.6 G/DL (3.2-5.2); BILIRUBIN,TOTAL 0.8 MG/DL (0.3-1.2); CHOLESTEROL RISK RATIO 2.24 (<5); CREATININE FOR GFR 1.17 MG/DL (0.55-1.30); GLOMERULAR FILTRATION RATE 48.7 (>39); HDL CHOLESTEROL 50.8 MG/DL (>40); LDL CHOLESTEROL 42.4 MG/DL (<100); POTASSIUM SERUM 4.1 MMOL/L (3.5-5.1); TOTAL PROTEIN 6.4 G/DL (5.7-8.2)
== END ==
LOC: M PLALAB 14:49
PROVIDERS: ATTEND Physician Assistant Medical
DX: E78.2 Mixed hyperlipidemia (principal); E11.9 Type 2 diabetes mellitus without complications

== ENCOUNTER → 2022-08-11 | Outpatient (CLI) | payer MEDICARE ==
[2022-08-11 16:42] LABS: ALBUMIN 3.6 G/DL (3.2-5.2); BILIRUBIN,TOTAL 0.4 MG/DL (0.3-1.2); CHOLESTEROL RISK RATIO 2.33 (<5); CREATININE FOR GFR 1.05 MG/DL (0.55-1.30); GLOMERULAR FILTRATION RATE 55.2 (>39); HDL CHOLESTEROL 56.2 MG/DL (>40); LDL CHOLESTEROL 56.2 MG/DL (<100); NON-HDL-C 74.8 MG/DL; TOTAL PROTEIN 6.3 G/DL (5.7-8.2)
[2022-08-11 16:53] LABS: HEMOGLOBIN A1c 6.2 % (4.0-6.0)
== END ==
LOC: M PLALAB 12:48
PROVIDERS: ATTEND Physician Assistant Medical
DX: E78.2 Mixed hyperlipidemia (principal); I10 Essential (primary) hypertension; E11.9 Type 2 diabetes mellitus without complications

== ENCOUNTER → 2022-08-17 | Outpatient (CLI) | payer MEDICARE | LOC: M WHC 12:18 | PROVIDERS: ATTEND Physician Assistant Medical | DX: Z12.31 Encounter for screening mammogram for malignant neoplasm of breast (principal) ==

== ENCOUNTER → 2022-12-14 | Outpatient (CLI) | payer MEDICARE ==
[2022-12-14 15:33] LABS: BASO # 0.1 10^3/uL (0.0-0.2); BASO % 0.9 % (0.0-1.0); EOS # 0.2 10^3/uL (0.0-0.5); EOS % 2.7 % (0.0-3.0); HEMATOCRIT 36.8 % (36.0-47.0); HEMOGLOBIN 11.7 g/dl (12.0-15.5); LYMPH # 1.5 10^3/uL (1.5-5.0); LYMPH % 22.1 % (24.0-44.0); MEAN CORPUSCULAR HEMOGLOBIN 30.9 pg (27.0-33.0); MEAN CORPUSCULAR HGB CONC 31.8 g/dl (32.0-36.5); MEAN CORPUSCULAR VOLUME 97.1 fl (80.0-96.0); MONO % 14.1 % (2.0-8.0); NEUTROPHILS # 4.2 10^3/uL (1.5-8.5); NEUTROPHILS % 59.9 % (36.0-66.0); PLATELET COUNT, AUTOMATED 240 10^3/uL (150-450); RED BLOOD COUNT 3.79 10^6/uL (4.00-5.40)
[2022-12-14 15:35] LABS: ALBUMIN 3.6 G/DL (3.2-5.2); BILIRUBIN,TOTAL 0.7 MG/DL (0.3-1.2); CALCIUM LEVEL 10.1 MG/DL (8.3-10.6); CREATININE FOR GFR 1.14 MG/DL (0.55-1.30); POTASSIUM SERUM 4.6 MMOL/L (3.5-5.1); TOTAL PROTEIN 6.6 G/DL (5.7-8.2)
[2022-12-14 15:56] LABS: CREATININE, URINE 134.9 MG/DL; MAU/CREAT RATIO 9.6 MCG/MG (0.0-30.0)
[2022-12-14 16:06] LABS: HEMOGLOBIN A1c 6.6 % (4.0-6.0)
== END ==
LOC: M PLALAB 12:18
PROVIDERS: ATTEND Physician Assistant Medical
DX: K21.9 Gastro-esophageal reflux disease without esophagitis (principal); E11.9 Type 2 diabetes mellitus without complications; I12.9 Hypertensive chronic kidney disease with stage 1 through stage 4 chronic kidney disease, or unspecified chronic kidney disease; N18.31 Chronic kidney disease, stage 3a

== ENCOUNTER → 2022-12-14 | Outpatient (REF) | payer MEDICARE | LOC: M SFHCPLAZ 12:07 | PROVIDERS: ATTEND Physician Assistant Medical | DX: K21.9 Gastro-esophageal reflux disease without esophagitis (principal); E11.9 Type 2 diabetes mellitus without complications; I12.9 Hypertensive chronic kidney disease with stage 1 through stage 4 chronic kidney disease, or unspecified chronic kidney disease ==

== ENCOUNTER → 2023-04-12 | Outpatient (CLI) | payer MEDICARE ==
[2023-04-12 16:13] LABS: BASO # 0.1 10^3/uL (0.0-0.2); BASO % 0.5 % (0.0-1.0); EOS # 0.1 10^3/uL (0.0-0.5); EOS % 1.2 % (0.0-3.0); HEMOGLOBIN 11.9 g/dl (12.0-15.5); LYMPH # 1.1 10^3/uL (1.5-5.0); LYMPH % 11.7 % (24.0-44.0); MEAN CORPUSCULAR HEMOGLOBIN 31.2 pg (27.0-33.0); MEAN CORPUSCULAR HGB CONC 32.2 g/dl (32.0-36.5); MEAN CORPUSCULAR VOLUME 97.1 fl (80.0-96.0); MONO # 1.2 10^3/uL (0.0-0.8); MONO % 12.3 % (2.0-8.0); NEUTROPHILS # 7.1 10^3/uL (1.5-8.5); NEUTROPHILS % 74.1 % (36.0-66.0); PLATELET COUNT, AUTOMATED 255 10^3/uL (150-450); RED BLOOD COUNT 3.81 10^6/uL (4.00-5.40); WHITE BLOOD COUNT 9.5 10^3/uL (4.0-10.0)
[2023-04-12 16:46] LABS: ALBUMIN 3.8 G/DL (3.2-5.2); BILIRUBIN,TOTAL 0.7 MG/DL (0.3-1.2); CALCIUM LEVEL 9.5 MG/DL (8.3-10.6); CREATININE FOR GFR 1.47 MG/DL (0.55-1.30); GLOMERULAR FILTRATION RATE 37.3 (>39); POTASSIUM SERUM 4.6 MMOL/L (3.5-5.1); TOTAL PROTEIN 6.7 G/DL (5.7-8.2)
[2023-04-12 16:49] LABS: HEMOGLOBIN A1c 5.9 % (4.0-6.0)
== END ==
LOC: M PLALAB 13:01
PROVIDERS: ATTEND Physician Assistant Medical
DX: I10 Essential (primary) hypertension (principal); E11.9 Type 2 diabetes mellitus without complications

== ENCOUNTER 2023-06-30 16:03 | Emergency (ER) | payer MEDICARE, SELFPAY ==
[~2023-06-30] VITALS: Ht 147.3 cm; Wt 81.8 kg
[2023-06-30] MEDS: ACETAMINOPHEN TAB 650MG DOSE (2X325MG) PO ONE (16:45)
[2023-06-30 17:21] LABS: BASO # 0.1 10^3/uL (0.0-0.2); BASO % 0.6 % (0.0-1.0); EOS # 0.1 10^3/uL (0.0-0.5); EOS % 1.3 % (0.0-3.0); HEMOGLOBIN 11.5 g/dl (12.0-15.5); LYMPH # 1.7 10^3/uL (1.5-5.0); LYMPH % 18.3 % (24.0-44.0); MEAN CORPUSCULAR HEMOGLOBIN 31.3 pg (27.0-33.0); MEAN CORPUSCULAR HGB CONC 32.9 g/dl (32.0-36.5); MEAN CORPUSCULAR VOLUME 95.4 fl (80.0-96.0); MONO # 1.2 10^3/uL (0.0-0.8); MONO % 12.9 % (2.0-8.0); NEUTROPHILS # 6.2 10^3/uL (1.5-8.5); NEUTROPHILS % 66.7 % (36.0-66.0); PLATELET COUNT, AUTOMATED 258 10^3/uL (150-450); RED BLOOD COUNT 3.67 10^6/uL (4.00-5.40); WHITE BLOOD COUNT 9.3 10^3/uL (4.0-10.0)
[2023-06-30 17:36] LABS: ALBUMIN 3.5 G/DL (3.2-5.2); BILIRUBIN,TOTAL 0.5 MG/DL (0.3-1.2); CALCIUM LEVEL 9.4 MG/DL (8.3-10.6); CREATININE FOR GFR 1.16 MG/DL (0.55-1.30); MAGNESIUM LEVEL 1.4 MG/DL (1.8-2.4); POTASSIUM SERUM 4.1 MMOL/L (3.5-5.1); TOTAL PROTEIN 6.6 G/DL (5.7-8.2)
[2023-06-30 17:42] LABS: INR 1.08; PROTHROMBIN TIME 13.7 SECONDS (12.5-14.5)
[2023-06-30] MEDS ORDERED: OXYC1TAB23 PO (18:56)
[2023-06-30] MEDS ORDERED: MAGN200T10 PO (19:04)
[2023-06-30] MEDS: PERCOCET 5MG/325MG TAB PO ONE (19:24)
[2023-06-30] MEDS: MAGNESIUM OXIDE 400MG TAB (MAG-OX) PO ONE (19:24)
[2023-06-30 19:30] VITALS: BP 145/65; TEMP 98; O2SAT 99
== END 2023-06-30 19:34 | disposition home or self-care (01) ==
LOC: M ED 16:03 → EDBD 16:03 → M ED 19:34
DX: S42.211A Unspecified displaced fracture of surgical neck of right humerus, initial encounter for closed fracture (principal); W01.0XXA Fall on same level from slipping, tripping and stumbling without subsequent striking against object, initial encounter; M19.012 Primary osteoarthritis, left shoulder; E11.9 Type 2 diabetes mellitus without complications; Y92.410 Unspecified street and highway as the place of occurrence of the external cause; Y93.89 Activity, other specified; Y99.9 Unspecified external cause status; Z91.030 Bee allergy status; Z88.8 Allergy status to other drugs, medicaments and biological substances; Z79.52 Long term (current) use of systemic steroids; Z79.4 Long term (current) use of insulin; Z79.83 Long term (current) use of bisphosphonates; Z79.899 Other long term (current) drug therapy

== ENCOUNTER → 2023-08-12 | Outpatient (CLI) | payer MEDICARE, OTHER ==
[~2023-08-12] MED LIST changes: +MAGN200T10 PO; +OXYC1TAB23 PO
[2023-08-12 16:21] LABS: BASO % 0.3 % (0.0-1.0); EOS # 0.1 10^3/uL (0.0-0.5); EOS % 1.4 % (0.0-3.0); HEMATOCRIT 35.6 % (36.0-47.0); HEMOGLOBIN 11.3 g/dl (12.0-15.5); LYMPH # 1.2 10^3/uL (1.5-5.0); LYMPH % 13.8 % (24.0-44.0); MEAN CORPUSCULAR HEMOGLOBIN 31.2 pg (27.0-33.0); MEAN CORPUSCULAR HGB CONC 31.7 g/dl (32.0-36.5); MEAN CORPUSCULAR VOLUME 98.3 fl (80.0-96.0); MONO % 11.4 % (2.0-8.0); NEUTROPHILS # 6.3 10^3/uL (1.5-8.5); NEUTROPHILS % 72.8 % (36.0-66.0); PLATELET COUNT, AUTOMATED 278 10^3/uL (150-450); RED BLOOD COUNT 3.62 10^6/uL (4.00-5.40); WHITE BLOOD COUNT 8.7 10^3/uL (4.0-10.0)
[2023-08-12 16:54] LABS: FERRITIN 75.1 NG/ML (7.3-270.7)
== END ==
LOC: M PLALAB 12:03
PROVIDERS: ATTEND Physician Assistant Medical
DX: S42.201A Unspecified fracture of upper end of right humerus, initial encounter for closed fracture (principal); G25.81 Restless legs syndrome; E11.9 Type 2 diabetes mellitus without complications; X58.XXXA Exposure to other specified factors, initial encounter; Y92.9 Unspecified place or not applicable; Z79.82 Long term (current) use of aspirin; Z79.84 Long term (current) use of oral hypoglycemic drugs; Y93.9 Activity, unspecified; Y99.9 Unspecified external cause status

== ENCOUNTER → 2023-09-16 | Outpatient (CLI) | payer MEDICARE | LOC: M WHC 10:11 | PROVIDERS: ATTEND Physician Assistant Medical | DX: Z12.31 Encounter for screening mammogram for malignant neoplasm of breast (principal); Z13.820 Encounter for screening for osteoporosis; M81.0 Age-related osteoporosis without current pathological fracture; M85.851 Other specified disorders of bone density and structure, right thigh; M85.852 Other specified disorders of bone density and structure, left thigh ==

== ENCOUNTER → 2023-10-26 | Outpatient (CLI) | payer MEDICARE ==
[2023-10-26 15:17] LABS: BASO % 0.7 % (0.0-1.0); EOS # 0.1 10^3/uL (0.0-0.5); EOS % 1.3 % (0.0-3.0); HEMATOCRIT 32.9 % (36.0-47.0); LYMPH # 1.1 10^3/uL (1.5-5.0); LYMPH % 18.6 % (24.0-44.0); MEAN CORPUSCULAR HEMOGLOBIN 31.5 pg (27.0-33.0); MEAN CORPUSCULAR HGB CONC 33.4 g/dl (32.0-36.5); MEAN CORPUSCULAR VOLUME 94.3 fl (80.0-96.0); MONO # 0.9 10^3/uL (0.0-0.8); MONO % 15.3 % (2.0-8.0); NEUTROPHILS # 3.9 10^3/uL (1.5-8.5); NEUTROPHILS % 63.8 % (36.0-66.0); PLATELET COUNT, AUTOMATED 254 10^3/uL (150-450); RED BLOOD COUNT 3.49 10^6/uL (4.00-5.40); WHITE BLOOD COUNT 6.1 10^3/uL (4.0-10.0)
[2023-10-26 15:50] LABS: ALBUMIN 3.5 G/DL (3.2-5.2); BILIRUBIN,TOTAL 0.8 MG/DL (0.3-1.2); CALCIUM LEVEL 9.8 MG/DL (8.3-10.6); CHOLESTEROL RISK RATIO 2.31 (<5); CREATININE FOR GFR 1.31 MG/DL (0.55-1.30); CREATININE, URINE 144.5 MG/DL; GLOMERULAR FILTRATION RATE 42.5 (>39); HDL CHOLESTEROL 45.8 MG/DL (>40); LDL CHOLESTEROL 36.8 MG/DL (<100); MAU/CREAT RATIO 6.9 MCG/MG (0.0-30.0); NON-HDL-C 60.2 MG/DL; POTASSIUM SERUM 4.7 MMOL/L (3.5-5.1); TOTAL PROTEIN 6.3 G/DL (5.7-8.2)
== END ==
LOC: M PLALAB 13:52
PROVIDERS: ATTEND Physician Assistant Medical
DX: I10 Essential (primary) hypertension (principal); E11.9 Type 2 diabetes mellitus without complications; E78.2 Mixed hyperlipidemia

== ENCOUNTER → 2024-07-24 | Outpatient (CLI) | payer MEDICARE, MEDICAID ==
[2024-07-24 13:54] LABS: BASO # 0.1 10^3/uL (0.0-0.2); BASO % 0.8 % (0.0-1.0); EOS # 0.1 10^3/uL (0.0-0.5); EOS % 1.3 % (0.0-3.0); HEMATOCRIT 37.7 % (36.0-47.0); LYMPH # 1.4 10^3/uL (1.5-5.0); LYMPH % 18.1 % (24.0-44.0); MEAN CORPUSCULAR HGB CONC 31.8 g/dl (32.0-36.5); MEAN CORPUSCULAR VOLUME 97.4 fl (80.0-96.0); MONO % 12.5 % (2.0-8.0); NEUTROPHILS # 5.3 10^3/uL (1.5-8.5); NEUTROPHILS % 66.9 % (36.0-66.0); PLATELET COUNT, AUTOMATED 314 10^3/uL (150-450); RED BLOOD COUNT 3.87 10^6/uL (4.00-5.40); WHITE BLOOD COUNT 7.8 10^3/uL (4.0-10.0)
[2024-07-24 14:22] LABS: HEMOGLOBIN A1c 5.3 % (4.0-6.0)
[2024-07-24 14:23] LABS: ALBUMIN 3.8 G/DL (3.2-5.2); BILIRUBIN,TOTAL 0.5 MG/DL (0.3-1.2); CALCIUM LEVEL 9.7 MG/DL (8.3-10.6); CHOLESTEROL RISK RATIO 3.56 (<5); CREATININE FOR GFR 1.4 MG/DL (0.55-1.30); FREE T4 1.17 NG/DL (0.89-1.76); GLOMERULAR FILTRATION RATE 39.4 (>39); HDL CHOLESTEROL 53.8 MG/DL (>40); LDL CHOLESTEROL 87.2 MG/DL (<100); NON-HDL-C 138.2 MG/DL; POTASSIUM SERUM 4.6 MMOL/L (3.5-5.1); THYROID STIMULATING HORMONE 3.188 uIU/ML (0.55-4.78)
[2024-07-24 14:25] LABS: FERRITIN 100.2 NG/ML (7.3-270.7)
== END ==
LOC: M PLALAB 10:55
PROVIDERS: ATTEND Physician Assistant Medical
DX: E78.2 Mixed hyperlipidemia (principal); R10.13 Epigastric pain; F32.9 Major depressive disorder, single episode, unspecified; I10 Essential (primary) hypertension; K21.9 Gastro-esophageal reflux disease without esophagitis; E11.22 Type 2 diabetes mellitus with diabetic chronic kidney disease

== ENCOUNTER → 2024-11-22 | Outpatient (CLI) | payer MEDICARE, MEDICAID ==
[~2024-11-22] MED LIST changes: +ATOR40TA75 PO; +B-12100010 PO; +CALCCHW4 PO; +ECOT81TA5 PO; +HYDR12.55 PO; +LOSA25TA13 PO; +MECL-86 PO; +METF-838 PO; +OMEP-173 PO; +QC F0.52 PO; +SERT50TA29 PO; +THERTAB52 PO; +TRUL0.5I SC; +VITA1CAP4 PO
[2024-11-22 15:42] LABS: BASO # 0.0 10^3/uL (0.0-0.2); BASO % 0.5 % (0.0-1.0); EOS # 0.1 10^3/uL (0.0-0.5); EOS % 1.5 % (0.0-3.0); LYMPH # 1.0 10^3/uL (1.5-5.0); LYMPH % 13.0 % (24.0-44.0); MONO # 1.0 10^3/uL (0.0-0.8); MONO % 13.0 % (2.0-8.0); NEUTROPHILS # 5.4 10^3/uL (1.5-8.5); NEUTROPHILS % 71.7 % (36.0-66.0); PLATELET COUNT, AUTOMATED 249 10^3/uL (150-450)
[2024-11-22 16:15] LABS: ALT/SGPT 19.0 U/L (7.0-40); AST/SGOT 23.0 U/L (<34); CALCIUM LEVEL 9.7 MG/DL (8.3-10.6); CARBON DIOXIDE LEVEL 24.0 MMOL/L (20-31); CHLORIDE LEVEL 103.0 MMOL/L (98-107); CREATININE FOR GFR 1.8 MG/DL (0.55-1.30); GLOMERULAR FILTRATION RATE 29.4 (>39); IRON (FE) 32.0 UG/DL (50-170); POTASSIUM SERUM 4.6 MMOL/L (3.5-5.1); SODIUM LEVEL 142.0 MMOL/L (136-145)
[2024-11-22 16:27] LABS: ESTIMATED AVERAGE GLUCOSE 108.0 MG/DL (60-110)
== END ==
LOC: M PLALAB 12:22
PROVIDERS: ATTEND Physician Assistant Medical
DX: N18.31 Chronic kidney disease, stage 3a (principal); I12.9 Hypertensive chronic kidney disease with stage 1 through stage 4 chronic kidney disease, or unspecified chronic kidney disease; R10.13 Epigastric pain; E11.22 Type 2 diabetes mellitus with diabetic chronic kidney disease

== ENCOUNTER → 2024-12-20 | Outpatient (CLI) | payer MEDICARE, MEDICAID ==
[~2024-12-20] MED LIST changes: +COLA100C5 PO; +ELIQ5TAB PO; +FURO80VL IV; +INSUHUMDS SC; +METO1TAB32 PO; +METO5TAB2 PO; +NYST10006 TOP
[2024-12-20 13:37] LABS: ALT/SGPT 21.0 U/L (7.0-40); AST/SGOT 31.0 U/L (<34); CALCIUM LEVEL 9.4 MG/DL (8.3-10.6); CARBON DIOXIDE LEVEL 20.0 MMOL/L (20-31); CHLORIDE LEVEL 103.0 MMOL/L (98-107); CK-MB VALUE MASS 2.5 NG/ML (<3.6); CREATININE FOR GFR 2.4 MG/DL (0.55-1.30); GLOMERULAR FILTRATION RATE 20.8 (>39); POTASSIUM SERUM 5.0 MMOL/L (3.5-5.1); SODIUM LEVEL 139.0 MMOL/L (136-145)
[2024-12-20 13:39] LABS: MYOGLOBIN 252.0 NG/ML (<110)
[2024-12-20 13:46] LABS: CPK CREATINE PHOSPHOKINASE 94.0 U/L (34-145); MB/CK RELATIVE INDEX 2.65 (< OR =4)
== END ==
LOC: M PLALAB 12:00
PROVIDERS: ATTEND Physician Assistant Medical
DX: R06.02 Shortness of breath (principal)

== ENCOUNTER → 2024-12-21 | Outpatient (CLI) | payer MEDICARE, MEDICAID | LOC: M RAD 12:28 | PROVIDERS: ATTEND Physician Assistant Medical | DX: R06.02 Shortness of breath (principal) ==

== ENCOUNTER 2024-12-22 17:02 | Inpatient (IN) | payer MEDICARE, MEDICAID ==
[~2024-12-22] VITALS: Ht 147.3 cm; Wt 79.4 kg
[~2024-12-22 17:02] MED LIST changes: -COLA100C5 PO; -ELIQ5TAB PO; -FURO80VL IV; -INSUHUMDS SC; -METO1TAB32 PO; -METO5TAB2 PO; -NYST10006 TOP
[2024-12-22 17:42] LABS: BASO # 0.0 10^3/uL (0.0-0.2); BASO % 0.4 % (0.0-1.0); EOS # 0.1 10^3/uL (0.0-0.5); EOS % 0.9 % (0.0-3.0); LYMPH # 0.6 10^3/uL (1.5-5.0); LYMPH % 8.2 % (24.0-44.0); MONO # 0.9 10^3/uL (0.0-0.8); MONO % 12.6 % (2.0-8.0); NEUTROPHILS # 5.4 10^3/uL (1.5-8.5); NEUTROPHILS % 77.6 % (36.0-66.0); PLATELET COUNT, AUTOMATED 227 10^3/uL (150-450)
[2024-12-22 18:14] LABS: ALT/SGPT 24.0 U/L (7.0-40); AST/SGOT 45.0 U/L (<34); CALCIUM LEVEL 9.3 MG/DL (8.3-10.6); CARBON DIOXIDE LEVEL 20.0 MMOL/L (20-31); CHLORIDE LEVEL 102.0 MMOL/L (98-107); CREATININE FOR GFR 2.0 MG/DL (0.55-1.30); GLOMERULAR FILTRATION RATE 25.9 (>39); MAGNESIUM LEVEL 1.9 MG/DL (1.8-2.4); POTASSIUM SERUM 5.0 MMOL/L (3.5-5.1); SODIUM LEVEL 138.0 MMOL/L (136-145)
[2024-12-22] MEDS: DIGOXIN INJ 0.5 MG/2 ML AMP IV ONE ×2 (18:14→19:29)
[2024-12-22] MEDS: APIXABAN 5 MG TAB PO ONE (18:32)
[2024-12-22] MEDS: METOPROLOL TART 50 MG TAB PO ONE (20:35)
[2024-12-22] MEDS: METOPROLOL 5 MG/5 ML VIAL IV SCH (20:36)
[2024-12-22] MEDS ORDERED: GLUCOSE 4 GM CHEW PO PRN (22:10)
[2024-12-22] MEDS ORDERED: GLUCAGON INJ 1 MG VIAL SC PRN (22:10)
[2024-12-22] MEDS ORDERED: DEXTROSE 50% 50 ML SYRINGE IV PRN (22:10)
[2024-12-22] MEDS: INSULIN LISPRO (NovoLOG) PER UNIT SC SCH (23:40)
[2024-12-23] MEDS ORDERED: METO5TAB2 PO (00:12)
[2024-12-23] MEDS ORDERED: HOME MED LIST COMPLETE! XX SCH (00:15)
[2024-12-23 06:02] LABS: BASO # 0.0 10^3/uL (0.0-0.2); BASO % 0.4 % (0.0-1.0); EOS # 0.1 10^3/uL (0.0-0.5); EOS % 1.5 % (0.0-3.0); LYMPH # 0.5 10^3/uL (1.5-5.0); LYMPH % 9.6 % (24.0-44.0); MONO # 0.8 10^3/uL (0.0-0.8); MONO % 14.5 % (2.0-8.0); NEUTROPHILS # 4.0 10^3/uL (1.5-8.5); NEUTROPHILS % 73.8 % (36.0-66.0); PLATELET COUNT, AUTOMATED 208 10^3/uL (150-450)
[2024-12-23 06:14] LABS: INR 1.45
[2024-12-23] MEDS: METOPROLOL TART 25 MG TABLET PO SCH ×2 (06:21→15:37)
[2024-12-23 06:27] LABS: CALCIUM LEVEL 8.9 MG/DL (8.3-10.6); CARBON DIOXIDE LEVEL 20.0 MMOL/L (20-31); CHLORIDE LEVEL 106.0 MMOL/L (98-107); CREATININE FOR GFR 1.86 MG/DL (0.55-1.30); GLOMERULAR FILTRATION RATE 28.3 (>39); POTASSIUM SERUM 4.5 MMOL/L (3.5-5.1); SODIUM LEVEL 140.0 MMOL/L (136-145)
[2024-12-23] MEDS: INSULIN LISPRO (NovoLOG) PER UNIT SC SCH (08:06)
[2024-12-23] MEDS: DOCUSATE SODIUM 100 MG CAPSULE PO SCH (08:46)
[2024-12-23] MEDS: APIXABAN 5 MG TAB PO SCH (08:46)
[2024-12-23] MEDS: OMEPRAZOLE 20MG CAP PO SCH (12:15)
[2024-12-23] MEDS: SERTRALINE HCL 50 MG TAB PO SCH (12:16)
[2024-12-23 15:30] VITALS: BP 112/61; TEMP 97.6; O2SAT 100
[2024-12-23 19:29] VITALS: BP 104/57; TEMP 97.8; O2SAT 97
[2024-12-23 23:47] VITALS: BP 119/61; TEMP 97.3; O2SAT 96
[2024-12-24 03:41] VITALS: BP 114/73; TEMP 97.5; O2SAT 98
[2024-12-24 05:07] LABS: BASO # 0.0 10^3/uL (0.0-0.2); BASO % 0.3 % (0.0-1.0); EOS # 0.1 10^3/uL (0.0-0.5); EOS % 2.2 % (0.0-3.0); LYMPH # 0.6 10^3/uL (1.5-5.0); LYMPH % 10.1 % (24.0-44.0); MONO # 0.8 10^3/uL (0.0-0.8); MONO % 12.9 % (2.0-8.0); NEUTROPHILS # 4.4 10^3/uL (1.5-8.5); NEUTROPHILS % 74.0 % (36.0-66.0); PLATELET COUNT, AUTOMATED 227 10^3/uL (150-450)
[2024-12-24 05:29] LABS: CALCIUM LEVEL 8.8 MG/DL (8.3-10.6); CARBON DIOXIDE LEVEL 22.0 MMOL/L (20-31); CHLORIDE LEVEL 106.0 MMOL/L (98-107); CREATININE FOR GFR 1.66 MG/DL (0.55-1.30); GLOMERULAR FILTRATION RATE 32.4 (>39); POTASSIUM SERUM 4.4 MMOL/L (3.5-5.1); SODIUM LEVEL 141.0 MMOL/L (136-145)
[2024-12-24 07:13] VITALS: BP 125/80; TEMP 97; O2SAT 98
[2024-12-24] MEDS: ALBUTEROL 90 MCG/ACT 8 GM HFA INHALER INH SCH (12:00)
[2024-12-24] MEDS: FUROSEMIDE 40 MG/4 ML VIAL IV ONE (12:58)
[2024-12-24 16:00] VITALS: BP 114/82; O2SAT 97
[2024-12-24] MEDS ORDERED: FUROSEMIDE 20 MG/2 ML VIAL IV SCH (17:00)
[2024-12-24 17:03] VITALS: BP 101/65; O2SAT 100
[2024-12-24 19:58] VITALS: BP 107/58; TEMP 97.3; O2SAT 99
[2024-12-24] MEDS: NYSTATIN 100,000 UNITS/GM TOPICAL PWD 15 GM TOP SCH (23:20)
[2024-12-24 23:38] VITALS: BP 115/74; TEMP 97; O2SAT 95
[2024-12-25] VITALS (8 sets, daily range): BP systolic 92–126; BP diastolic 56–63; TEMP 97.2–97.8; O2SAT 94–100
[2024-12-25 05:42] LABS: BASO # 0.0 10^3/uL (0.0-0.2); BASO % 0.5 % (0.0-1.0); EOS # 0.1 10^3/uL (0.0-0.5); EOS % 1.8 % (0.0-3.0); LYMPH # 0.6 10^3/uL (1.5-5.0); LYMPH % 10.6 % (24.0-44.0); MONO # 1.0 10^3/uL (0.0-0.8); MONO % 16.4 % (2.0-8.0); NEUTROPHILS # 4.3 10^3/uL (1.5-8.5); NEUTROPHILS % 70.5 % (36.0-66.0); PLATELET COUNT, AUTOMATED 194 10^3/uL (150-450)
[2024-12-25 06:10] LABS: CALCIUM LEVEL 8.0 MG/DL (8.3-10.6); CARBON DIOXIDE LEVEL 20.0 MMOL/L (20-31); CHLORIDE LEVEL 108.0 MMOL/L (98-107); CREATININE FOR GFR 1.77 MG/DL (0.55-1.30); GLOMERULAR FILTRATION RATE 30.0 (>39); POTASSIUM SERUM 4.8 MMOL/L (3.5-5.1); SODIUM LEVEL 142.0 MMOL/L (136-145)
[2024-12-25] MEDS: METOPROLOL SUCC. 25 MG *XL* TAB PO SCH (08:24)
[2024-12-25] MEDS: FUROSEMIDE 20 MG/2 ML VIAL IV SCH (08:25)
[2024-12-25] MEDS ORDERED: INSUHUMDS SC (16:09)
[2024-12-25] MEDS ORDERED: ELIQ5TAB PO (16:09)
[2024-12-25] MEDS ORDERED: NYST10006 TOP (16:09)
[2024-12-25] MEDS ORDERED: COLA100C5 PO (16:09)
[2024-12-25] MEDS ORDERED: FURO80VL IV (16:09)
[2024-12-25] MEDS ORDERED: METO1TAB32 PO (16:09)
== END 2024-12-25 21:44 | disposition short-term general hospital (02) | DRG 291 ==
LOC: M ED 17:02 → M ED INP 22:03 → M PCU 12-23 15:21
PROVIDERS: ADMIT Internal Medicine Nephrology; ATTEND Internal Medicine Nephrology
DX: I13.0 Hypertensive heart and chronic kidney disease with heart failure and stage 1 through stage 4 chronic kidney disease, or unspecified chronic kidney disease (principal); I50.21 Acute systolic (congestive) heart failure; N17.9 Acute kidney failure, unspecified; I48.91 Unspecified atrial fibrillation; E78.5 Hyperlipidemia, unspecified; J45.909 Unspecified asthma, uncomplicated; N18.30 Chronic kidney disease, stage 3 unspecified; E11.22 Type 2 diabetes mellitus with diabetic chronic kidney disease; F32.A Depression, unspecified; E55.9 Vitamin D deficiency, unspecified; R91.8 Other nonspecific abnormal finding of lung field; M81.0 Age-related osteoporosis without current pathological fracture; I35.0 Nonrheumatic aortic (valve) stenosis; E66.9 Obesity, unspecified; I83.90 Asymptomatic varicose veins of unspecified lower extremity; Z85.42 Personal history of malignant neoplasm of other parts of uterus; Z92.21 Personal history of antineoplastic chemotherapy; F81.9 Developmental disorder of scholastic skills, unspecified; Z79.899 Other long term (current) drug therapy; Z79.82 Long term (current) use of aspirin; R11.0 Nausea

== ENCOUNTER → 2025-01-24 | Outpatient (CLI) | payer MEDICARE, MEDICAID ==
[~2025-01-24] MED LIST changes: +COLA100C5 PO; +ELIQ5TAB PO; +FURO80VL IV; +INSUHUMDS SC; +METO1TAB32 PO; +METO5TAB2 PO; +NYST10006 TOP
[2025-01-24 17:50] LABS: ALT/SGPT 15.0 U/L (7.0-40); AST/SGOT 24.0 U/L (<34); CALCIUM LEVEL 9.2 MG/DL (8.3-10.6); CARBON DIOXIDE LEVEL 23.0 MMOL/L (20-31); CHLORIDE LEVEL 102.0 MMOL/L (98-107); CREATININE FOR GFR 2.69 MG/DL (0.55-1.30); GLOMERULAR FILTRATION RATE 18.1 (>39); POTASSIUM SERUM 5.0 MMOL/L (3.5-5.1); SODIUM LEVEL 136.0 MMOL/L (136-145)
== END ==
LOC: M PLALAB 15:05
PROVIDERS: ATTEND Physician Assistant Medical
DX: I50.21 Acute systolic (congestive) heart failure (principal); I50.811 Acute right heart failure; N17.0 Acute kidney failure with tubular necrosis; N18.31 Chronic kidney disease, stage 3a

== ENCOUNTER 2025-02-06 10:15 | Inpatient (IN) | payer MEDICARE, MEDICAID ==
[~2025-02-06] VITALS: Ht 147.3 cm; Wt 79.5 kg
[2025-02-06] VITALS (27 sets, daily range): BP systolic 88–124; BP diastolic 52–80; TEMP 95–97.5; O2SAT 80–100
[2025-02-06 11:12] LABS: BASO # 0.0 10^3/uL (0.0-0.2); BASO % 0.2 % (0.0-1.0); EOS # 0.0 10^3/uL (0.0-0.5); EOS % 0.0 % (0.0-3.0); LYMPH # 0.2 10^3/uL (1.5-5.0); LYMPH % 4.1 % (24.0-44.0); MONO # 0.9 10^3/uL (0.0-0.8); MONO % 16.4 % (2.0-8.0); NEUTROPHILS # 4.4 10^3/uL (1.5-8.5); NEUTROPHILS % 79.1 % (36.0-66.0); PLATELET COUNT, AUTOMATED 279 10^3/uL (150-450)
[2025-02-06 11:16] LABS: AMORPHOUS SEDIMENT SMALL (NEGATIVE); APPEARANCE, URINE CLOUDY (CLEAR); BACTERIA, URINE AUTO NEGATIVE (NEGATIVE); BILIRUBIN, URINE AUTO NEGATIVE (NEGATIVE); BLOOD, URINE BLOOD 1+ (NEGATIVE); GLUCOSE, URINE (UA) AUTO 3+ mg/dL (NEGATIVE); KETONE, URINE AUTO TRACE mg/dL (NEGATIVE); LEUKOCYTE ESTERASE, URINE AUTO 2+ (NEGATIVE); MUCUS, URINE SMALL (NEGATIVE); NITRITE, URINE AUTO NEGATIVE (NEGATIVE); PROTEIN, URINE AUTO 3+ mg/dL (NEGATIVE); RBC, URINE AUTO 18 /HPF (0-3); SPECIFIC GRAVITY URINE AUTO 1.017 (1.002-1.035); SQUAMOUS EPITHELIAL CELL UR AU 8 /HPF (0-6); TRANSITIONAL EPITHELIAL AUTO 3 /HPF; UROBILINOGEN, URINE AUTO 0.2 mg/dL (0.0-2.0); WBC, URINE AUTO 57 /HPF (0-3)
[2025-02-06] MEDS: DIGOXIN INJ 0.5 MG/2 ML AMP IV ONE (11:53)
[2025-02-06 12:11] LABS: ALT/SGPT 21.0 U/L (7.0-40); AST/SGOT 35.0 U/L (<34); CALCIUM LEVEL 8.7 MG/DL (8.3-10.6); CARBON DIOXIDE LEVEL 12.0 MMOL/L (20-31); CHLORIDE LEVEL 100.0 MMOL/L (98-107); CREATININE FOR GFR 8.15 MG/DL (0.55-1.30); GLOMERULAR FILTRATION RATE 4.8 (>39); POTASSIUM SERUM 6.9 MMOL/L (3.5-5.1); SODIUM LEVEL 135.0 MMOL/L (136-145)
[2025-02-06] MEDS: HumuLIN R (REGULAR) INSULIN (NovoLIN R) **100 U/ML** PER UNIT IV STA (12:40)
[2025-02-06] MEDS: DEXTROSE 50% 50 ML SYRINGE IV STA (12:41)
[2025-02-06 12:42] LABS: VENOUS BASE EXCESS -16.2 (-2.0-2.0); VENOUS HCO3 11.9 MMOL/L (23.0-27.0); VENOUS O2 SATURATION 76.9 % (60.0-80.0); VENOUS PARTIAL PRESSURE CO2 36.2 mmHg (38.0-50.0); VENOUS PARTIAL PRESSURE O2 52.8 mmHg (30.0-50.0); VENOUS PH 7.136 UNITS (7.330-7.430); VENOUS STANDARD HCO3 12.0 MMOL/L; VENOUS TOTAL CO2 13.0 MMOL/L (24.0-28.0)
[2025-02-06] MEDS: CALCIUM CHLORIDE 10% 1 GM in D5W 100 ML IV SCH (12:52)
[2025-02-06] MEDS: SODIUM BICARBONATE 150 MEQ in D5W 1,000 ML IV SCH (13:19)
[2025-02-06] MEDS ORDERED: HEPARIN SOD 5000 UNITS/ML 1 ML VIAL/SYRINGE SC SCH (13:50)
[2025-02-06] MEDS ORDERED: HEPARIN 1,000 UNITS/ML 10 ML VIAL (FOR RADIOLOGY & DIALYSIS ONLY) IV PRN (14:00)
[2025-02-06] MEDS ORDERED: SODIUM CHLORIDE 0.9% 1000 ML IV PRN (14:00)
[2025-02-06] MEDS ORDERED: HEPARIN 1,000 UNITS/ML 10 ML VIAL (FOR RADIOLOGY & DIALYSIS ONLY) XX SCH (14:00)
[2025-02-06] MEDS ORDERED: SERT-141 PO (14:05)
[2025-02-06] MEDS ORDERED: METF-838 PO (14:05)
[2025-02-06] MEDS ORDERED: REGL5TAB2 PO (14:05)
[2025-02-06] MEDS ORDERED: METO1TAB32 PO (14:05)
[2025-02-06] MEDS ORDERED: CVSTAB PO (14:05)
[2025-02-06] MEDS ORDERED: CHOL10CA2 PO (14:05)
[2025-02-06] MEDS ORDERED: TORS10TA3 PO (14:05)
[2025-02-06] MEDS ORDERED: OMEP-358 PO (14:05)
[2025-02-06] MEDS ORDERED: ELIQ5TAB PO (14:05)
[2025-02-06] MEDS ORDERED: FARX1TAB3 PO (14:05)
[2025-02-06] MEDS ORDERED: B-122500 PO (14:05)
[2025-02-06] MEDS: cefTRIAXone SOD 2 GM in DEXTROSE 5% (D5W) ADV/MINI-BAG 50 ML IV ONE (14:09)
[2025-02-06] MEDS ORDERED: HOME MED LIST COMPLETE! XX SCH (14:10)
[2025-02-06 15:00] LABS: HEPATITIS B SURFACE ANTIBODY NEGATIVE (POSITIVE)
[2025-02-06 15:33] LABS: HEPATITIS C VIRUS ABY INDEX 0.02 INDEX (<0.8)
[2025-02-06] MEDS: METOPROLOL 5 MG/5 ML VIAL IV SCH (16:32)
[2025-02-06] MEDS: METOPROLOL 5 MG/5 ML VIAL IV PRN (17:22)
[2025-02-07] VITALS (50 sets, daily range): BP systolic 69–143; BP diastolic 39–114; TEMP 97.3–98.4; O2SAT 78–99
[2025-02-07] MEDS: MIDODRINE 5 MG TAB PO ONE (00:45)
[2025-02-07 05:00] LABS: CENTRAL VEN BASE EXCESS -3.1
[2025-02-07 05:05] LABS: BASO # 0.0 10^3/uL (0.0-0.2); BASO % 0.2 % (0.0-1.0); EOS # 0.0 10^3/uL (0.0-0.5); EOS % 0.2 % (0.0-3.0); LYMPH # 0.3 10^3/uL (1.5-5.0); LYMPH % 5.2 % (24.0-44.0); MONO # 1.1 10^3/uL (0.0-0.8); MONO % 19.4 % (2.0-8.0); NEUTROPHILS # 4.2 10^3/uL (1.5-8.5); NEUTROPHILS % 74.8 % (36.0-66.0); PLATELET COUNT, AUTOMATED 203 10^3/uL (150-450)
[2025-02-07 05:38] LABS: CPK CREATINE PHOSPHOKINASE 48.0 U/L (34-145)
[2025-02-07 05:52] LABS: ALT/SGPT 18.0 U/L (7.0-40); AST/SGOT 26.0 U/L (<34); CALCIUM LEVEL 8.0 MG/DL (8.3-10.6); CARBON DIOXIDE LEVEL 23.0 MMOL/L (20-31); CHLORIDE LEVEL 98.0 MMOL/L (98-107); CK-MB VALUE MASS 4.2 NG/ML (<3.6); CREATININE FOR GFR 5.44 MG/DL (0.55-1.30); GLOMERULAR FILTRATION RATE 7.8 (>39); MAGNESIUM LEVEL 1.8 MG/DL (1.8-2.4); MB/CK RELATIVE INDEX 8.75 (< OR =4); POTASSIUM SERUM 4.6 MMOL/L (3.5-5.1); SODIUM LEVEL 135.0 MMOL/L (136-145)
[2025-02-07] MEDS: METOPROLOL TART 25 MG TABLET PO SCH ×2 (07:39→12:33)
[2025-02-07] MEDS: APIXABAN 5 MG TAB PO SCH (09:18)
[2025-02-07] MEDS: PANTOPRAZOLE 40MG VIAL IV SCH (09:18)
[2025-02-07] MEDS: FUROSEMIDE injection 100 MG, VIAL 2 BAG 13MM ADAPTER 1 EACH in NS 100 ML IV SCH (09:18)
[2025-02-07] MEDS: cefTRIAXone SOD 1 GM in DEXTROSE 5% (D5W) ADV/MINI-BAG 50 ML IV SCH (13:54)
[2025-02-07 16:15] LABS: CALCIUM LEVEL 7.6 MG/DL (8.3-10.6); CARBON DIOXIDE LEVEL 24.0 MMOL/L (20-31); CHLORIDE LEVEL 99.0 MMOL/L (98-107); CREATININE FOR GFR 5.54 MG/DL (0.55-1.30); GLOMERULAR FILTRATION RATE 7.6 (>39); POTASSIUM SERUM 4.3 MMOL/L (3.5-5.1); SODIUM LEVEL 132.0 MMOL/L (136-145)
[2025-02-07] MEDS: MAG SULF 1GM/100ML (MAG RUN) 1 GM in IV 1 EA IV ONE (17:59)
[2025-02-07] MEDS: MAG SULF 1GM/100ML (MAG RUN) 1 GM in IV 1 EA IV SCH (19:51)
[2025-02-08] VITALS (23 sets, daily range): BP systolic 73–166; BP diastolic 41–84; TEMP 98.2–98.8; O2SAT 95–98
[2025-02-08 04:42] LABS: BASO # 0.0 10^3/uL (0.0-0.2); BASO % 0.2 % (0.0-1.0); EOS # 0.1 10^3/uL (0.0-0.5); EOS % 1.1 % (0.0-3.0); LYMPH # 0.3 10^3/uL (1.5-5.0); LYMPH % 4.7 % (24.0-44.0); MONO # 1.2 10^3/uL (0.0-0.8); MONO % 19.3 % (2.0-8.0); NEUTROPHILS # 4.8 10^3/uL (1.5-8.5); NEUTROPHILS % 74.5 % (36.0-66.0); PLATELET COUNT, AUTOMATED 200 10^3/uL (150-450)
[2025-02-08 05:02] LABS: ALT/SGPT 16.0 U/L (7.0-40); AST/SGOT 23.0 U/L (<34); CALCIUM LEVEL 7.8 MG/DL (8.3-10.6); CARBON DIOXIDE LEVEL 26.0 MMOL/L (20-31); CHLORIDE LEVEL 98.0 MMOL/L (98-107); CREATININE FOR GFR 5.55 MG/DL (0.55-1.30); GLOMERULAR FILTRATION RATE 7.6 (>39); POTASSIUM SERUM 4.2 MMOL/L (3.5-5.1); SODIUM LEVEL 136.0 MMOL/L (136-145)
[2025-02-08] MEDS ORDERED: GLUCOSE 4 GM CHEW PO PRN (12:45)
[2025-02-08] MEDS ORDERED: GLUCAGON INJ 1 MG VIAL SC PRN (12:45)
[2025-02-08] MEDS ORDERED: DEXTROSE 50% 50 ML SYRINGE IV PRN (12:45)
[2025-02-08] MEDS: INSULIN LISPRO (NovoLOG) PER UNIT SC SCH ×2 (13:20→21:00)
[2025-02-08] MEDS: METOPROLOL TART 25 MG TABLET PO ONE (15:07)
[2025-02-08] MEDS ORDERED: INSULIN LISPRO (NovoLOG) PER UNIT SC SCH (17:30)
[2025-02-08] MEDS: AMIODARONE 200 MG TAB PO SCH (21:24)
[2025-02-08] MEDS: MAGNESIUM OXIDE 400 MG TAB PO SCH (21:24)
[2025-02-08] MEDS: METOPROLOL TART 25 MG TABLET PO SCH (21:26)
[2025-02-09] VITALS (8 sets, daily range): BP systolic 102–133; BP diastolic 58–80; PULSE 89; TEMP 97.1–98.6; O2SAT 93–98
[2025-02-09 04:22] LABS: PLATELET COUNT, AUTOMATED 182 10^3/uL (150-450)
[2025-02-09 04:56] LABS: ALT/SGPT 14.0 U/L (7.0-40); AST/SGOT 23.0 U/L (<34); CALCIUM LEVEL 7.8 MG/DL (8.3-10.6); CARBON DIOXIDE LEVEL 28.0 MMOL/L (20-31); CHLORIDE LEVEL 96.0 MMOL/L (98-107); CREATININE FOR GFR 5.38 MG/DL (0.55-1.30); GLOMERULAR FILTRATION RATE 7.9 (>39); POTASSIUM SERUM 3.8 MMOL/L (3.5-5.1); SODIUM LEVEL 136.0 MMOL/L (136-145)
[2025-02-09] MEDS: PANTOPRAZOLE 40MG TAB PO SCH (08:57)
[2025-02-09] MEDS ORDERED: MOM 30 ML SUSPENSION UDC PO PRN (09:00)
[2025-02-09] MEDS ORDERED: HEPARIN 1,000 UNITS/ML 10 ML VIAL (FOR RADIOLOGY & DIALYSIS ONLY) IV PRN (10:05)
[2025-02-09] MEDS ORDERED: SODIUM CHLORIDE 0.9% 1000 ML IV PRN (10:05)
[2025-02-09] MEDS: DOCUSATE SODIUM 100 MG CAPSULE PO SCH (10:25)
[2025-02-09] MEDS: HEPARIN 1,000 UNITS/ML 10 ML VIAL (FOR RADIOLOGY & DIALYSIS ONLY) XX SCH (13:27)
[2025-02-09] MEDS: CEFDINIR 300 MG CAP PO ONE (18:11)
[2025-02-09] MEDS ORDERED: CEFDINIR 300 MG CAP PO SCH (21:00)
[2025-02-09] MEDS: SENNA 8.6 MG TAB PO SCH (21:07)
[2025-02-09] MEDS: ACETAMINOPHEN 325 MG TAB PO PRN (21:11)
[2025-02-09 22:08] LABS: CK-MB VALUE MASS 1.3 NG/ML (<3.6)
[2025-02-09 22:09] LABS: CPK CREATINE PHOSPHOKINASE 45.0 U/L (34-145); MB/CK RELATIVE INDEX 2.88 (< OR =4)
[2025-02-10] VITALS (7 sets, daily range): BP systolic 99–125; BP diastolic 60–77; TEMP 97–98.1; O2SAT 93–97
[2025-02-10 05:19] LABS: PLATELET COUNT, AUTOMATED 179 10^3/uL (150-450)
[2025-02-10 05:57] LABS: ALT/SGPT 16.0 U/L (7.0-40); AST/SGOT 23.0 U/L (<34); CALCIUM LEVEL 7.7 MG/DL (8.3-10.6); CARBON DIOXIDE LEVEL 30.0 MMOL/L (20-31); CHLORIDE LEVEL 96.0 MMOL/L (98-107); CREATININE FOR GFR 3.31 MG/DL (0.55-1.30); GLOMERULAR FILTRATION RATE 14.2 (>39); POTASSIUM SERUM 3.6 MMOL/L (3.5-5.1); SODIUM LEVEL 137.0 MMOL/L (136-145)
[2025-02-10] MEDS ORDERED: HEPARIN 1,000 UNITS/ML 10 ML VIAL (FOR RADIOLOGY & DIALYSIS ONLY) IV PRN (10:20)
[2025-02-10] MEDS ORDERED: SODIUM CHLORIDE 0.9% 1000 ML IV PRN (10:20)
[2025-02-10] MEDS: HEPARIN 1,000 UNITS/ML 10 ML VIAL (FOR RADIOLOGY & DIALYSIS ONLY) XX SCH (12:14)
[2025-02-10] MEDS: CEFDINIR 300 MG CAP PO SCH (15:35)
[2025-02-11] VITALS (11 sets, daily range): BP systolic 88–110; BP diastolic 56–71; PULSE 97; TEMP 97–98.3; O2SAT 94–99
[2025-02-11 05:47] LABS: PLATELET COUNT, AUTOMATED 160 10^3/uL (150-450)
[2025-02-11 06:14] LABS: ALT/SGPT 16.0 U/L (7.0-40); AST/SGOT 25.0 U/L (<34); CALCIUM LEVEL 7.9 MG/DL (8.3-10.6); CARBON DIOXIDE LEVEL 27.0 MMOL/L (20-31); CHLORIDE LEVEL 98.0 MMOL/L (98-107); CREATININE FOR GFR 2.69 MG/DL (0.55-1.30); GLOMERULAR FILTRATION RATE 18.1 (>39); POTASSIUM SERUM 4.0 MMOL/L (3.5-5.1); SODIUM LEVEL 136.0 MMOL/L (136-145)
[2025-02-11 07:39] LABS: CK-MB VALUE MASS 1.2 NG/ML (<3.6)
[2025-02-11 07:41] LABS: CPK CREATINE PHOSPHOKINASE 32.0 U/L (34-145); MB/CK RELATIVE INDEX 3.75 (< OR =4)
[2025-02-12 04:25] VITALS: BP 116/62; TEMP 97.5; O2SAT 97
[2025-02-12 08:01] VITALS: BP 106/68; TEMP 97.1; O2SAT 95
[2025-02-12 08:56] LABS: PLATELET COUNT, AUTOMATED 159 10^3/uL (150-450)
[2025-02-12 09:29] LABS: ALT/SGPT 20.0 U/L (7.0-40); AST/SGOT 24.0 U/L (<34); CALCIUM LEVEL 8.2 MG/DL (8.3-10.6); CARBON DIOXIDE LEVEL 30.0 MMOL/L (20-31); CHLORIDE LEVEL 97.0 MMOL/L (98-107); CREATININE FOR GFR 2.82 MG/DL (0.55-1.30); GLOMERULAR FILTRATION RATE 17.1 (>39); POTASSIUM SERUM 3.6 MMOL/L (3.5-5.1); SODIUM LEVEL 139.0 MMOL/L (136-145)
[2025-02-12] MEDS: FUROSEMIDE injection 100 MG, VIAL 2 BAG 13MM ADAPTER 1 EACH in NS 100 ML IV SCH (09:30)
[2025-02-12 12:06] VITALS: BP 117/64; TEMP 97; O2SAT 95
[2025-02-12] MEDS: SPIRONOLACTONE 25 MG TAB PO ONE (14:17)
[2025-02-12] MEDS: POTASSIUM CHLORIDE 10MEQ SR TABLET PO ONE (14:17)
[2025-02-12 16:22] VITALS: BP 106/65; TEMP 97.5; O2SAT 96
[2025-02-12] MEDS: SPIRONOLACTONE 25 MG TAB PO SCH (17:29)
[2025-02-12 19:30] VITALS: BP 104/59; TEMP 97; O2SAT 97
[2025-02-12 23:35] VITALS: BP 117/72; TEMP 97.5; O2SAT 99
[2025-02-13] VITALS (8 sets, daily range): BP systolic 107–124; BP diastolic 52–85; TEMP 96.9–97.8; O2SAT 96–99
[2025-02-13 09:26] LABS: PLATELET COUNT, AUTOMATED 190 10^3/uL (150-450)
[2025-02-13 09:56] LABS: ALT/SGPT 23.0 U/L (7.0-40); AST/SGOT 28.0 U/L (<34); CALCIUM LEVEL 8.6 MG/DL (8.3-10.6); CARBON DIOXIDE LEVEL 30.0 MMOL/L (20-31); CHLORIDE LEVEL 97.0 MMOL/L (98-107); CREATININE FOR GFR 2.7 MG/DL (0.55-1.30); GLOMERULAR FILTRATION RATE 18.1 (>39); POTASSIUM SERUM 4.2 MMOL/L (3.5-5.1); SODIUM LEVEL 139.0 MMOL/L (136-145)
[2025-02-14] VITALS (8 sets, daily range): BP systolic 97–124; BP diastolic 60–88; TEMP 97.2–97.5; O2SAT 96–98
[2025-02-14 07:06] LABS: PLATELET COUNT, AUTOMATED 192 10^3/uL (150-450)
[2025-02-14 07:26] LABS: CALCIUM LEVEL 8.3 MG/DL (8.3-10.6); CARBON DIOXIDE LEVEL 31.0 MMOL/L (20-31); CHLORIDE LEVEL 96.0 MMOL/L (98-107); CREATININE FOR GFR 2.75 MG/DL (0.55-1.30); GLOMERULAR FILTRATION RATE 17.7 (>39); POTASSIUM SERUM 3.7 MMOL/L (3.5-5.1); SODIUM LEVEL 140.0 MMOL/L (136-145)
[2025-02-15] VITALS (7 sets, daily range): BP systolic 95–120; BP diastolic 44–68; TEMP 97–98.2; O2SAT 91–98
[2025-02-15 05:48] LABS: PLATELET COUNT, AUTOMATED 196 10^3/uL (150-450)
[2025-02-15 06:05] LABS: CALCIUM LEVEL 8.5 MG/DL (8.3-10.6); CARBON DIOXIDE LEVEL 32.0 MMOL/L (20-31); CHLORIDE LEVEL 98.0 MMOL/L (98-107); CREATININE FOR GFR 2.66 MG/DL (0.55-1.30); GLOMERULAR FILTRATION RATE 18.4 (>39); POTASSIUM SERUM 3.6 MMOL/L (3.5-5.1); SODIUM LEVEL 141.0 MMOL/L (136-145)
[2025-02-15] MEDS: NEOSPORIN OINT 0.9 GM PKT TOP ONE (11:15)
[2025-02-15] MEDS: POTASSIUM CHLORIDE 10MEQ SR TABLET PO ONE (11:49)
[2025-02-15] MEDS: NYSTATIN 100,000 UNITS/GM TOPICAL PWD 15 GM TOP SCH (12:31)
[2025-02-16 04:00] VITALS: BP 112/58; TEMP 97.5; O2SAT 94
[2025-02-16 07:17] LABS: CALCIUM LEVEL 8.6 MG/DL (8.3-10.6); CARBON DIOXIDE LEVEL 33.0 MMOL/L (20-31); CHLORIDE LEVEL 95.0 MMOL/L (98-107); CREATININE FOR GFR 2.56 MG/DL (0.55-1.30); GLOMERULAR FILTRATION RATE 19.3 (>39); POTASSIUM SERUM 4.0 MMOL/L (3.5-5.1); SODIUM LEVEL 139.0 MMOL/L (136-145)
[2025-02-16 12:00] VITALS: BP 129/81; TEMP 98.1; O2SAT 100
[2025-02-16 20:13] VITALS: BP 103/59; TEMP 97; O2SAT 98
[2025-02-17 04:21] VITALS: BP 103/59; TEMP 98.1; O2SAT 98
[2025-02-17 07:01] LABS: CALCIUM LEVEL 8.4 MG/DL (8.3-10.6); CARBON DIOXIDE LEVEL 34.0 MMOL/L (20-31); CHLORIDE LEVEL 97.0 MMOL/L (98-107); CREATININE FOR GFR 2.43 MG/DL (0.55-1.30); GLOMERULAR FILTRATION RATE 20.5 (>39); PHOSPHORUS LEVEL 4.2 MG/DL (2.4-5.1); POTASSIUM SERUM 3.8 MMOL/L (3.5-5.1); SODIUM LEVEL 142.0 MMOL/L (136-145)
[2025-02-17] MEDS: BUMETANIDE 1 MG TAB PO SCH (08:16)
[2025-02-17 12:00] VITALS: BP 103/64; TEMP 98.1; O2SAT 99
[2025-02-17] MEDS: POTASSIUM CHLORIDE 10MEQ SR TABLET PO ONE (18:28)
[2025-02-17 20:31] VITALS: BP 125/87; TEMP 98.2; O2SAT 96
[2025-02-18 03:52] VITALS: BP 113/54; TEMP 97.3; O2SAT 98
[2025-02-18 08:06] LABS: CALCIUM LEVEL 8.5 MG/DL (8.3-10.6); CARBON DIOXIDE LEVEL 29.0 MMOL/L (20-31); CHLORIDE LEVEL 97.0 MMOL/L (98-107); CREATININE FOR GFR 2.44 MG/DL (0.55-1.30); GLOMERULAR FILTRATION RATE 20.4 (>39); POTASSIUM SERUM 5.5 MMOL/L (3.5-5.1); SODIUM LEVEL 142.0 MMOL/L (136-145)
[2025-02-18 12:02] VITALS: BP 113/63; TEMP 97.9; O2SAT 95
[2025-02-18 20:40] VITALS: BP 104/58; TEMP 98.2; O2SAT 97
[2025-02-19] VITALS (7 sets, daily range): BP systolic 88–141; BP diastolic 54–77; TEMP 97.2–98.2; O2SAT 96–99
[2025-02-19 07:12] LABS: CALCIUM LEVEL 8.5 MG/DL (8.3-10.6); CARBON DIOXIDE LEVEL 32.0 MMOL/L (20-31); CHLORIDE LEVEL 97.0 MMOL/L (98-107); CREATININE FOR GFR 2.49 MG/DL (0.55-1.30); GLOMERULAR FILTRATION RATE 19.9 (>39); POTASSIUM SERUM 4.2 MMOL/L (3.5-5.1); SODIUM LEVEL 139.0 MMOL/L (136-145)
[2025-02-20 04:24] VITALS: BP 82/42; TEMP 97.5; O2SAT 96
[2025-02-20 04:45] VITALS: BP 88/54
[2025-02-20 05:56] VITALS: BP 94/54
[2025-02-20 08:08] LABS: CALCIUM LEVEL 8.7 MG/DL (8.3-10.6); CARBON DIOXIDE LEVEL 32.0 MMOL/L (20-31); CHLORIDE LEVEL 98.0 MMOL/L (98-107); CREATININE FOR GFR 2.33 MG/DL (0.55-1.30); GLOMERULAR FILTRATION RATE 21.6 (>39); POTASSIUM SERUM 4.3 MMOL/L (3.5-5.1); SODIUM LEVEL 140.0 MMOL/L (136-145)
[2025-02-20 08:18] VITALS: BP 100/52
[2025-02-20] MEDS ORDERED: COLA100C5 PO (08:45)
[2025-02-20] MEDS ORDERED: BUME1TAB3 PO (08:45)
[2025-02-20] MEDS ORDERED: AMIO200T54 PO (08:45)
[2025-02-20] MEDS ORDERED: SENN18TA PO (08:45)
[2025-02-20] MEDS ORDERED: METO1TAB87 PO (08:45)
[2025-02-20] MEDS ORDERED: ALDA25TA2 PO (08:45)
[2025-02-20] MEDS ORDERED: GLIP5TAB17 PO (08:45)
[2025-02-20] MEDS ORDERED: MAGN400T33 PO (08:45)
== END 2025-02-20 12:02 | disposition home health service (06) | DRG 871 ==
LOC: M ED 10:15 → EDBD 10:15 → M ED INP 13:50 → M ICU 15:05 → M PCU 02-09 16:24 → M MSPAV 02-15 22:13
PROVIDERS: ADMIT Internal Medicine Critical Care Medicine; ATTEND Internal Medicine
PROC: 0JH63XZ Insertion of Tunneled Vascular Access Device into Chest Subcutaneous Tissue and Fascia, Percutaneous Approach (ICD-10-PCS; principal; 2025-02-06)
PROC: 02HV33Z Insertion of Infusion Device into Superior Vena Cava, Percutaneous Approach (ICD-10-PCS; 2025-02-06)
PROC: 5A1D70Z Performance of Urinary Filtration, Intermittent, Less than 6 Hours Per Day (ICD-10-PCS; 2025-02-06)
DX: A41.9 Sepsis, unspecified organism (principal); I50.23 Acute on chronic systolic (congestive) heart failure; I13.0 Hypertensive heart and chronic kidney disease with heart failure and stage 1 through stage 4 chronic kidney disease, or unspecified chronic kidney disease; N17.9 Acute kidney failure, unspecified; E87.21 Acute metabolic acidosis; N39.0 Urinary tract infection, site not specified; I42.9 Cardiomyopathy, unspecified; E87.5 Hyperkalemia; E11.22 Type 2 diabetes mellitus with diabetic chronic kidney disease; J45.909 Unspecified asthma, uncomplicated; N18.30 Chronic kidney disease, stage 3 unspecified; I50.82 Biventricular heart failure; D64.9 Anemia, unspecified; I35.0 Nonrheumatic aortic (valve) stenosis; I48.91 Unspecified atrial fibrillation; I25.10 Atherosclerotic heart disease of native coronary artery without angina pectoris; E78.5 Hyperlipidemia, unspecified; M81.0 Age-related osteoporosis without current pathological fracture; I95.9 Hypotension, unspecified; E83.42 Hypomagnesemia; F32.A Depression, unspecified; K59.00 Constipation, unspecified; R91.8 Other nonspecific abnormal finding of lung field; Z92.21 Personal history of antineoplastic chemotherapy; Z85.42 Personal history of malignant neoplasm of other parts of uterus; Z79.899 Other long term (current) drug therapy; Z79.4 Long term (current) use of insulin; I87.8 Other specified disorders of veins

== ENCOUNTER → 2025-03-08 | Outpatient (REF) | payer MEDICARE ==
[~2025-03-08] MED LIST changes: +ALDA25TA2 PO; +AMIO200T54 PO; +B-122500 PO; +BUME1TAB3 PO; +CHOL10CA2 PO; +CVSTAB PO; +FARX1TAB3 PO; +GLIP5TAB17 PO; +MAGN400T33 PO; +METO1TAB87 PO; +OMEP-358 PO; +REGL5TAB2 PO; +SENN18TA PO; +SERT-141 PO; +TORS10TA3 PO
== END ==
LOC: M SFHCPLAZ 14:23
PROVIDERS: ATTEND Family Medicine
DX: Z53.9 Procedure and treatment not carried out, unspecified reason (principal)

== ENCOUNTER → 2025-03-08 | Outpatient (CLI) | payer MEDICARE ==
[2025-03-08 17:23] LABS: BASO # 0.1 10^3/uL (0.0-0.2); BASO % 0.8 % (0.0-1.0); EOS # 0.1 10^3/uL (0.0-0.5); EOS % 1.0 % (0.0-3.0); LYMPH # 0.6 10^3/uL (1.5-5.0); LYMPH % 6.0 % (24.0-44.0); MONO # 1.0 10^3/uL (0.0-0.8); MONO % 11.3 % (2.0-8.0); NEUTROPHILS # 7.4 10^3/uL (1.5-8.5); NEUTROPHILS % 80.6 % (36.0-66.0); PLATELET COUNT, AUTOMATED 405 10^3/uL (150-450)
[2025-03-08 17:30] LABS: IRON (FE) 104.0 UG/DL (50-170)
[2025-03-08 17:34] LABS: ALT/SGPT 18.0 U/L (7.0-40); AST/SGOT 22.0 U/L (<34); CALCIUM LEVEL 10.0 MG/DL (8.3-10.6); CARBON DIOXIDE LEVEL 29.0 MMOL/L (20-31); CHLORIDE LEVEL 100.0 MMOL/L (98-107); CREATININE FOR GFR 2.61 MG/DL (0.55-1.30); GLOMERULAR FILTRATION RATE 18.8 (>39); MAGNESIUM LEVEL 1.9 MG/DL (1.8-2.4); POTASSIUM SERUM 4.5 MMOL/L (3.5-5.1); SODIUM LEVEL 143.0 MMOL/L (136-145)
[2025-03-08 17:58] LABS: ESTIMATED AVERAGE GLUCOSE 154.0 MG/DL (60-110)
== END ==
LOC: M PLALAB 14:39
PROVIDERS: ATTEND Family Medicine
DX: N18.31 Chronic kidney disease, stage 3a (principal); E11.22 Type 2 diabetes mellitus with diabetic chronic kidney disease; I50.22 Chronic systolic (congestive) heart failure; I48.0 Paroxysmal atrial fibrillation; E61.1 Iron deficiency

== ENCOUNTER → 2025-04-02 | Outpatient (CLI) | payer MEDICARE ==
[~2025-04-02] MED LIST changes: +BUME2TAB3 PO; +DOCU100C16 PO; +FERR324T21 PO; +MAGN400T2 PO; +ROPI5TAB19 PO; +SENN-188 PO; +SPIR-10 PO
[2025-04-02 18:49] LABS: ALT/SGPT 16.0 U/L (7.0-40); AST/SGOT 34.0 U/L (<34); CALCIUM LEVEL 9.7 MG/DL (8.3-10.6); CARBON DIOXIDE LEVEL 25.0 MMOL/L (20-31); CHLORIDE LEVEL 101.0 MMOL/L (98-107); CREATININE FOR GFR 2.25 MG/DL (0.55-1.30); GLOMERULAR FILTRATION RATE 22.5 (>39); POTASSIUM SERUM 5.1 MMOL/L (3.5-5.1); SODIUM LEVEL 137.0 MMOL/L (136-145)
== END ==
LOC: M PLALAB 13:40
PROVIDERS: ATTEND Physician Assistant Medical
DX: N18.31 Chronic kidney disease, stage 3a (principal); I50.22 Chronic systolic (congestive) heart failure

== ENCOUNTER 2025-04-18 12:25 | Inpatient (IN) | payer MEDICARE, MEDICAID ==
[~2025-04-18] VITALS: Ht 147.3 cm; Wt 72.4 kg
[~2025-04-18 12:25] MED LIST changes: -BUME2TAB3 PO; -DOCU100C16 PO; -FERR324T21 PO; -MAGN400T2 PO; -ROPI5TAB19 PO; -SENN-188 PO; -SPIR-10 PO
[2025-04-18 13:16] LABS: BASO # 0.0 10^3/uL (0.0-0.2); BASO % 0.5 % (0.0-1.0); EOS # 0.1 10^3/uL (0.0-0.5); EOS % 1.6 % (0.0-3.0); LYMPH # 0.3 10^3/uL (1.5-5.0); LYMPH % 5.5 % (24.0-44.0); MONO # 0.8 10^3/uL (0.0-0.8); MONO % 13.7 % (2.0-8.0); NEUTROPHILS # 4.3 10^3/uL (1.5-8.5); NEUTROPHILS % 78.3 % (36.0-66.0); PLATELET COUNT, AUTOMATED 314 10^3/uL (150-450)
[2025-04-18 13:54] LABS: THYROXINE (T4) 5.6 UG/DL (4.5-10.9)
[2025-04-18 13:56] LABS: ALT/SGPT 13.0 U/L (7.0-40); AST/SGOT 24.0 U/L (<34); CALCIUM LEVEL 8.5 MG/DL (8.3-10.6); CARBON DIOXIDE LEVEL 30.0 MMOL/L (20-31); CHLORIDE LEVEL 103.0 MMOL/L (98-107); CREATININE FOR GFR 1.86 MG/DL (0.55-1.30); GLOMERULAR FILTRATION RATE 28.3 (>39); POTASSIUM SERUM 3.1 MMOL/L (3.5-5.1); SODIUM LEVEL 145.0 MMOL/L (136-145)
[2025-04-18] MEDS ORDERED: MAGN400T2 PO (14:35)
[2025-04-18] MEDS ORDERED: BUME2TAB3 PO (14:35)
[2025-04-18] MEDS ORDERED: METO1TAB87 PO (14:35)
[2025-04-18] MEDS ORDERED: AMIO200T54 PO (14:35)
[2025-04-18] MEDS ORDERED: DOCU100C16 PO (14:35)
[2025-04-18] MEDS ORDERED: GLIP5TAB17 PO (14:35)
[2025-04-18] MEDS ORDERED: SPIR-10 PO (14:35)
[2025-04-18] MEDS ORDERED: SENN-188 PO (14:35)
[2025-04-18] MEDS ORDERED: FERR324T21 PO (14:41)
[2025-04-18] MEDS ORDERED: ROPI5TAB19 PO (14:41)
[2025-04-18] MEDS ORDERED: HOME MED LIST COMPLETE! XX SCH (14:45)
[2025-04-18] MEDS: POTASSIUM CHLORIDE 10MEQ SR TABLET PO ONE (15:06)
[2025-04-18] MEDS: FUROSEMIDE 40 MG/4 ML VIAL IV ONE (15:10)
[2025-04-18] MEDS ORDERED: GLUCOSE 4 GM CHEW PO PRN (15:20)
[2025-04-18] MEDS ORDERED: GLUCAGON INJ 1 MG VIAL SC PRN (15:20)
[2025-04-18] MEDS ORDERED: MECLIZINE 25 MG TABLET PO PRN (15:20)
[2025-04-18] MEDS: INSULIN LISPRO (NovoLOG) PER UNIT SC SCH ×2 (17:30→22:23)
[2025-04-18] MEDS: DEXTROSE 50% 50 ML SYRINGE IV PRN (18:17)
[2025-04-18] MEDS: METOPROLOL TART 25 MG TABLET PO SCH (18:18)
[2025-04-18] MEDS: MAGNESIUM OXIDE 400 MG TAB PO SCH (22:21)
[2025-04-18] MEDS: APIXABAN 5 MG TAB PO SCH (22:22)
[2025-04-18] MEDS: SENNA 8.6 MG TAB PO SCH (22:23)
[2025-04-18] MEDS: METOCLOPRAMIDE 5 MG TAB PO SCH (22:23)
[2025-04-18] MEDS: rOPINIRole 0.25 MG TAB PO SCH (22:23)
[2025-04-18] MEDS: DOCUSATE SODIUM 100 MG CAPSULE PO SCH (22:23)
[2025-04-19] MEDS: AMIODARONE 200 MG TAB PO SCH (07:29)
[2025-04-19] MEDS: OMEPRAZOLE 20MG CAP PO SCH (07:29)
[2025-04-19] MEDS: ATORVASTATIN 20 MG TAB PO SCH (07:29)
[2025-04-19] MEDS: SERTRALINE HCL 50 MG TAB PO SCH (07:29)
[2025-04-19] MEDS: CYANOCOBALAMIN 500 MCG TAB PO SCH (07:29)
[2025-04-19 08:13] LABS: BASO # 0.1 10^3/uL (0.0-0.2); BASO % 1.1 % (0.0-1.0); EOS # 0.1 10^3/uL (0.0-0.5); EOS % 2.0 % (0.0-3.0); LYMPH # 0.4 10^3/uL (1.5-5.0); LYMPH % 7.7 % (24.0-44.0); MONO # 0.9 10^3/uL (0.0-0.8); MONO % 17.3 % (2.0-8.0); NEUTROPHILS # 3.9 10^3/uL (1.5-8.5); NEUTROPHILS % 71.3 % (36.0-66.0); PLATELET COUNT, AUTOMATED 316 10^3/uL (150-450)
[2025-04-19 08:40] LABS: CALCIUM LEVEL 8.5 MG/DL (8.3-10.6); CARBON DIOXIDE LEVEL 32.0 MMOL/L (20-31); CHLORIDE LEVEL 100.0 MMOL/L (98-107); CREATININE FOR GFR 1.82 MG/DL (0.55-1.30); GLOMERULAR FILTRATION RATE 29.0 (>39); MAGNESIUM LEVEL 1.6 MG/DL (1.8-2.4); POTASSIUM SERUM 3.2 MMOL/L (3.5-5.1); SODIUM LEVEL 141.0 MMOL/L (136-145)
[2025-04-19] MEDS ORDERED: BUMETANIDE 1 MG TAB PO SCH (09:00)
[2025-04-19] MEDS: BUMETANIDE 1 MG/4 ML VIAL IV ONE (09:20)
[2025-04-19] MEDS: POTASSIUM CHLORIDE 10MEQ SR TABLET PO ONE (10:27)
[2025-04-19] MEDS: FUROSEMIDE injection 100 MG, VIAL 2 BAG 13MM ADAPTER 1 EACH in NS 100 ML IV SCH (10:29)
[2025-04-19 17:29] VITALS: BP 124/82; TEMP 97.3
[2025-04-19 19:15] VITALS: BP 113/72; TEMP 98.3; O2SAT 97
[2025-04-19 21:20] VITALS: BP 107/67
[2025-04-20] VITALS (9 sets, daily range): BP systolic 94–120; BP diastolic 48–73; TEMP 96.8–98.7; O2SAT 92–99
[2025-04-20] MEDS: GABAPENTIN 300 MG CAP PO ONE (02:36)
[2025-04-20 02:37] LABS: BASO # 0.0 10^3/uL (0.0-0.2); BASO % 0.3 % (0.0-1.0); EOS # 0.1 10^3/uL (0.0-0.5); EOS % 2.0 % (0.0-3.0); LYMPH # 0.5 10^3/uL (1.5-5.0); LYMPH % 7.6 % (24.0-44.0); MONO # 0.9 10^3/uL (0.0-0.8); MONO % 15.1 % (2.0-8.0); NEUTROPHILS # 4.4 10^3/uL (1.5-8.5); NEUTROPHILS % 74.7 % (36.0-66.0); PLATELET COUNT, AUTOMATED 275 10^3/uL (150-450)
[2025-04-20 03:06] LABS: CALCIUM LEVEL 8.1 MG/DL (8.3-10.6); CARBON DIOXIDE LEVEL 32.0 MMOL/L (20-31); CHLORIDE LEVEL 101.0 MMOL/L (98-107); CREATININE FOR GFR 1.88 MG/DL (0.55-1.30); GLOMERULAR FILTRATION RATE 27.9 (>39); MAGNESIUM LEVEL 1.6 MG/DL (1.8-2.4); POTASSIUM SERUM 3.7 MMOL/L (3.5-5.1); SODIUM LEVEL 142.0 MMOL/L (136-145)
[2025-04-20] MEDS: POTASSIUM CHLORIDE 10MEQ SR TABLET PO SCH (08:27)
[2025-04-20] MEDS: FERROUS GLUCONATE 324 MG TAB PO SCH (08:27)
[2025-04-20] MEDS: FUROSEMIDE injection 100 MG, VIAL 2 BAG 13MM ADAPTER 1 EACH in NS 100 ML IV SCH (14:11)
[2025-04-21 03:36] VITALS: TEMP 98.3; O2SAT 96
[2025-04-21 04:00] VITALS: BP 116/53
[2025-04-21 06:55] LABS: BASO # 0.0 10^3/uL (0.0-0.2); BASO % 0.7 % (0.0-1.0); EOS # 0.2 10^3/uL (0.0-0.5); EOS % 2.9 % (0.0-3.0); LYMPH # 0.5 10^3/uL (1.5-5.0); LYMPH % 9.0 % (24.0-44.0); MONO # 1.1 10^3/uL (0.0-0.8); MONO % 19.0 % (2.0-8.0); NEUTROPHILS # 4.0 10^3/uL (1.5-8.5); NEUTROPHILS % 68.1 % (36.0-66.0); PLATELET COUNT, AUTOMATED 280 10^3/uL (150-450)
[2025-04-21 07:24] LABS: CALCIUM LEVEL 8.1 MG/DL (8.3-10.6); CARBON DIOXIDE LEVEL 33.0 MMOL/L (20-31); CHLORIDE LEVEL 104.0 MMOL/L (98-107); CREATININE FOR GFR 1.73 MG/DL (0.55-1.30); GLOMERULAR FILTRATION RATE 30.8 (>39); MAGNESIUM LEVEL 1.6 MG/DL (1.8-2.4); POTASSIUM SERUM 3.5 MMOL/L (3.5-5.1); SODIUM LEVEL 146.0 MMOL/L (136-145)
[2025-04-21 08:18] LABS: KETONE, URINE AUTO RFX NEGATIVE (NEGATIVE); LEUKOCYTE ESTERASE UR AUTO RFX NEGATIVE (NEGATIVE); NITRITE, URINE AUTO RFX NEGATIVE (NEGATIVE); RBC, URINE AUTO RFX 1 /HPF (0-3); SQUAM EPITHELIAL CELL UR AURFX 0 /HPF (0-6); WBC, URINE AUTO RFX 3 /HPF (0-3)
[2025-04-21 12:00] VITALS: BP 99/52; TEMP 97.9; O2SAT 96
[2025-04-21 20:15] VITALS: BP 108/51; TEMP 98.6; O2SAT 99
[2025-04-22 03:14] VITALS: BP 87/57; TEMP 98.6; O2SAT 93
[2025-04-22 05:30] VITALS: BP 112/56
[2025-04-22 06:06] LABS: BASO # 0.1 10^3/uL (0.0-0.2); BASO % 1.0 % (0.0-1.0); EOS # 0.2 10^3/uL (0.0-0.5); EOS % 3.3 % (0.0-3.0); LYMPH # 0.6 10^3/uL (1.5-5.0); LYMPH % 11.4 % (24.0-44.0); MONO # 0.8 10^3/uL (0.0-0.8); MONO % 16.0 % (2.0-8.0); NEUTROPHILS # 3.5 10^3/uL (1.5-8.5); NEUTROPHILS % 68.1 % (36.0-66.0); PLATELET COUNT, AUTOMATED 285 10^3/uL (150-450)
[2025-04-22 06:32] LABS: CALCIUM LEVEL 8.3 MG/DL (8.3-10.6); CARBON DIOXIDE LEVEL 33.0 MMOL/L (20-31); CHLORIDE LEVEL 103.0 MMOL/L (98-107); CREATININE FOR GFR 1.89 MG/DL (0.55-1.30); GLOMERULAR FILTRATION RATE 27.7 (>39); MAGNESIUM LEVEL 1.6 MG/DL (1.8-2.4); POTASSIUM SERUM 3.9 MMOL/L (3.5-5.1); SODIUM LEVEL 146.0 MMOL/L (136-145)
[2025-04-22 12:00] VITALS: BP 97/59; TEMP 98.4; O2SAT 95
[2025-04-22 20:27] VITALS: BP 98/58; TEMP 99; O2SAT 96
[2025-04-23 04:31] VITALS: BP 111/59; TEMP 98.1; O2SAT 95
[2025-04-23 07:09] LABS: BASO # 0.1 10^3/uL (0.0-0.2); BASO % 1.2 % (0.0-1.0); EOS # 0.2 10^3/uL (0.0-0.5); EOS % 3.3 % (0.0-3.0); LYMPH # 0.6 10^3/uL (1.5-5.0); LYMPH % 11.8 % (24.0-44.0); MONO # 0.8 10^3/uL (0.0-0.8); MONO % 15.9 % (2.0-8.0); NEUTROPHILS # 3.4 10^3/uL (1.5-8.5); NEUTROPHILS % 67.2 % (36.0-66.0); PLATELET COUNT, AUTOMATED 297 10^3/uL (150-450)
[2025-04-23 08:10] VITALS: BP 88/56
[2025-04-23 08:12] LABS: CALCIUM LEVEL 9.0 MG/DL (8.3-10.6); CARBON DIOXIDE LEVEL 33.0 MMOL/L (20-31); CHLORIDE LEVEL 102.0 MMOL/L (98-107); CREATININE FOR GFR 1.99 MG/DL (0.55-1.30); GLOMERULAR FILTRATION RATE 26.1 (>39); MAGNESIUM LEVEL 1.6 MG/DL (1.8-2.4); POTASSIUM SERUM 4.2 MMOL/L (3.5-5.1); SODIUM LEVEL 143.0 MMOL/L (136-145)
[2025-04-23] MEDS ORDERED: MIDODRINE 5 MG TAB PO ONE (08:20)
[2025-04-23 09:58] VITALS: BP 88/52
[2025-04-23 12:00] VITALS: BP 106/59; TEMP 97.3; O2SAT 99
[2025-04-23 15:56] VITALS: BP 121/55
[2025-04-23 19:57] VITALS: BP 92/54; TEMP 98.7; O2SAT 98
[2025-04-24 04:19] VITALS: BP 105/50; TEMP 97.5; O2SAT 95
[2025-04-24 07:00] LABS: BASO # 0.1 10^3/uL (0.0-0.2); BASO % 1.0 % (0.0-1.0); EOS # 0.2 10^3/uL (0.0-0.5); EOS % 2.9 % (0.0-3.0); LYMPH # 0.5 10^3/uL (1.5-5.0); LYMPH % 8.5 % (24.0-44.0); MONO # 1.0 10^3/uL (0.0-0.8); MONO % 16.2 % (2.0-8.0); NEUTROPHILS # 4.4 10^3/uL (1.5-8.5); NEUTROPHILS % 71.1 % (36.0-66.0); PLATELET COUNT, AUTOMATED 285 10^3/uL (150-450)
[2025-04-24 07:28] LABS: CALCIUM LEVEL 8.6 MG/DL (8.3-10.6); CARBON DIOXIDE LEVEL 36.0 MMOL/L (20-31); CHLORIDE LEVEL 98.0 MMOL/L (98-107); CREATININE FOR GFR 2.08 MG/DL (0.55-1.30); GLOMERULAR FILTRATION RATE 24.7 (>39); MAGNESIUM LEVEL 1.8 MG/DL (1.8-2.4); POTASSIUM SERUM 3.7 MMOL/L (3.5-5.1); SODIUM LEVEL 142.0 MMOL/L (136-145)
[2025-04-24 08:22] VITALS: BP 100/60
[2025-04-24] MEDS ORDERED: PILL CUTTER 1 EACH XX PRN (11:05)
[2025-04-24 11:57] VITALS: BP 110/53; TEMP 98.2; O2SAT 94
[2025-04-24] MEDS: metOLazone 2.5 MG TAB PO ONE (12:45)
[2025-04-24 17:48] VITALS: BP 90/50
[2025-04-24 19:52] VITALS: BP 116/70; TEMP 98.8; O2SAT 93
[2025-04-24 22:29] VITALS: BP 100/56
[2025-04-25] VITALS (7 sets, daily range): BP systolic 89–124; BP diastolic 51–77; TEMP 97.7–98.2; O2SAT 93–98
[2025-04-25 07:30] LABS: BASO # 0.1 10^3/uL (0.0-0.2); BASO % 0.9 % (0.0-1.0); EOS # 0.2 10^3/uL (0.0-0.5); EOS % 3.2 % (0.0-3.0); LYMPH # 0.5 10^3/uL (1.5-5.0); LYMPH % 8.5 % (24.0-44.0); MONO # 0.9 10^3/uL (0.0-0.8); MONO % 16.4 % (2.0-8.0); NEUTROPHILS # 4.0 10^3/uL (1.5-8.5); NEUTROPHILS % 70.8 % (36.0-66.0); PLATELET COUNT, AUTOMATED 319 10^3/uL (150-450)
[2025-04-25 07:54] LABS: CALCIUM LEVEL 8.6 MG/DL (8.3-10.6); CARBON DIOXIDE LEVEL 37.0 MMOL/L (20-31); CHLORIDE LEVEL 97.0 MMOL/L (98-107); CREATININE FOR GFR 2.18 MG/DL (0.55-1.30); GLOMERULAR FILTRATION RATE 23.4 (>39); MAGNESIUM LEVEL 1.8 MG/DL (1.8-2.4); POTASSIUM SERUM 3.6 MMOL/L (3.5-5.1); SODIUM LEVEL 142.0 MMOL/L (136-145)
[2025-04-25] MEDS: metOLazone 2.5 MG TAB PO ONE (12:12)
[2025-04-26] VITALS (10 sets, daily range): BP systolic 84–104; BP diastolic 49–56; TEMP 98–99.2; O2SAT 92–95
[2025-04-26 07:05] LABS: CALCIUM LEVEL 8.5 MG/DL (8.3-10.6); CARBON DIOXIDE LEVEL 36.0 MMOL/L (20-31); CHLORIDE LEVEL 95.0 MMOL/L (98-107); CREATININE FOR GFR 2.27 MG/DL (0.55-1.30); GLOMERULAR FILTRATION RATE 22.2 (>39); MAGNESIUM LEVEL 1.8 MG/DL (1.8-2.4); POTASSIUM SERUM 3.5 MMOL/L (3.5-5.1); SODIUM LEVEL 142.0 MMOL/L (136-145)
[2025-04-26] MEDS: metOLazone 2.5 MG TAB PO ONE (12:05)
[2025-04-27 03:32] VITALS: BP 84/56; TEMP 97.9; O2SAT 93
[2025-04-27 03:54] VITALS: BP 98/52
[2025-04-27 05:30] VITALS: BP 98/52
[2025-04-27 07:05] LABS: CALCIUM LEVEL 8.7 MG/DL (8.3-10.6); CARBON DIOXIDE LEVEL 37.0 MMOL/L (20-31); CHLORIDE LEVEL 95.0 MMOL/L (98-107); CREATININE FOR GFR 2.34 MG/DL (0.55-1.30); GLOMERULAR FILTRATION RATE 21.5 (>39); MAGNESIUM LEVEL 2.0 MG/DL (1.8-2.4); POTASSIUM SERUM 3.8 MMOL/L (3.5-5.1); SODIUM LEVEL 142.0 MMOL/L (136-145)
[2025-04-27 12:00] VITALS: BP 100/64; TEMP 98.4; O2SAT 91
[2025-04-27 20:20] VITALS: BP 88/52; TEMP 97.3; O2SAT 94
[2025-04-28 03:37] VITALS: BP 106/74; TEMP 98.1; O2SAT 94
[2025-04-28 06:53] LABS: CALCIUM LEVEL 8.6 MG/DL (8.3-10.6); CARBON DIOXIDE LEVEL 38.0 MMOL/L (20-31); CHLORIDE LEVEL 91.0 MMOL/L (98-107); CREATININE FOR GFR 2.26 MG/DL (0.55-1.30); GLOMERULAR FILTRATION RATE 22.4 (>39); MAGNESIUM LEVEL 2.0 MG/DL (1.8-2.4); POTASSIUM SERUM 3.7 MMOL/L (3.5-5.1); SODIUM LEVEL 138.0 MMOL/L (136-145)
[2025-04-28] MEDS: SPIRONOLACTONE 50 MG TAB PO SCH (09:05)
[2025-04-28] MEDS: TORSEMIDE 100 MG TAB PO SCH (09:06)
[2025-04-28] MEDS: METOPROLOL SUCC. 25 MG *XL* TAB PO SCH (12:19)
[2025-04-29 04:51] VITALS: BP 94/52; TEMP 98.4; O2SAT 97
[2025-04-29] MEDS: METOPROLOL TART 25 MG TABLET PO SCH (08:55)
[2025-04-30 05:23] VITALS: BP 117/66; TEMP 97.5; O2SAT 92
[2025-04-30 06:44] LABS: CALCIUM LEVEL 9.2 MG/DL (8.3-10.6); CARBON DIOXIDE LEVEL 35.0 MMOL/L (20-31); CHLORIDE LEVEL 92.0 MMOL/L (98-107); CREATININE FOR GFR 2.59 MG/DL (0.55-1.30); GLOMERULAR FILTRATION RATE 19.0 (>39); POTASSIUM SERUM 4.5 MMOL/L (3.5-5.1); SODIUM LEVEL 137.0 MMOL/L (136-145)
[2025-04-30 08:35] VITALS: BP 102/55
[2025-04-30] MEDS: ACETAMINOPHEN 325 MG TAB PO PRN (14:50)
[2025-04-30 16:53] VITALS: BP 98/56
[2025-04-30] MEDS: TORSEMIDE 100 MG TAB PO SCH (17:25)
[2025-04-30 21:32] VITALS: BP 111/59
[2025-05-01 03:16] VITALS: BP 112/57; TEMP 97.1; O2SAT 91
[2025-05-01 06:42] LABS: CALCIUM LEVEL 9.2 MG/DL (8.3-10.6); CARBON DIOXIDE LEVEL 37.0 MMOL/L (20-31); CHLORIDE LEVEL 92.0 MMOL/L (98-107); CREATININE FOR GFR 2.68 MG/DL (0.55-1.30); GLOMERULAR FILTRATION RATE 18.2 (>39); POTASSIUM SERUM 4.2 MMOL/L (3.5-5.1); SODIUM LEVEL 138.0 MMOL/L (136-145)
[2025-05-01 21:00] VITALS: BP 127/84; TEMP 97.1; O2SAT 91
[2025-05-02 05:10] VITALS: BP 104/58; TEMP 98; O2SAT 95
[2025-05-02 12:49] VITALS: BP 88/52
[2025-05-03 04:37] VITALS: BP 110/52; TEMP 97.9; O2SAT 95
[2025-05-03 20:34] VITALS: BP 126/71; TEMP 97.9; O2SAT 94
[2025-05-04 04:55] VITALS: BP 110/58; TEMP 98; O2SAT 95
[2025-05-04 08:21] LABS: CALCIUM LEVEL 9.0 MG/DL (8.3-10.6); CARBON DIOXIDE LEVEL 31.0 MMOL/L (20-31); CHLORIDE LEVEL 97.0 MMOL/L (98-107); CREATININE FOR GFR 2.76 MG/DL (0.55-1.30); GLOMERULAR FILTRATION RATE 17.6 (>39); PHOSPHORUS LEVEL 4.7 MG/DL (2.4-5.1); POTASSIUM SERUM 4.2 MMOL/L (3.5-5.1); SODIUM LEVEL 140.0 MMOL/L (136-145)
[2025-05-04] MEDS: SPIRONOLACTONE 25 MG TAB PO SCH (17:00)
[2025-05-04] MEDS: TORSEMIDE 50 MG PER 1/2 TAB PO SCH (17:00)
[2025-05-05 05:54] VITALS: BP 103/61; TEMP 98.2; O2SAT 92
[2025-05-05] MEDS: LIDOCAINE 5% PATCH TD SCH (08:32)
[2025-05-05 17:12] VITALS: BP 93/52
[2025-05-06 05:57] VITALS: BP 103/71; TEMP 98.3; O2SAT 96
[2025-05-06 07:58] VITALS: BP 94/54
[2025-05-06 17:25] VITALS: BP 103/53
[2025-05-07 04:00] VITALS: BP 109/66; TEMP 97.3; O2SAT 94
[2025-05-08 03:29] VITALS: BP 99/70; TEMP 97.8; O2SAT 93
[2025-05-09 03:43] VITALS: BP 111/76; TEMP 97.3; O2SAT 98
[2025-05-09 08:07] VITALS: BP 116/70
[2025-05-09] MEDS ORDERED: TORS100T PO (11:20)
== END 2025-05-09 12:59 | DRG 291 ==
LOC: EDBD 12:25 → M ED 12:25 → M ED INP 15:08 → M PCU 04-19 17:27 → M MSPAV 04-20 17:07
PROVIDERS: ADMIT General Practice; ATTEND Internal Medicine
DX: I13.0 Hypertensive heart and chronic kidney disease with heart failure and stage 1 through stage 4 chronic kidney disease, or unspecified chronic kidney disease (principal); I50.23 Acute on chronic systolic (congestive) heart failure; N17.9 Acute kidney failure, unspecified; N18.30 Chronic kidney disease, stage 3 unspecified; E78.5 Hyperlipidemia, unspecified; I48.91 Unspecified atrial fibrillation; M81.0 Age-related osteoporosis without current pathological fracture; E11.22 Type 2 diabetes mellitus with diabetic chronic kidney disease; J45.909 Unspecified asthma, uncomplicated; I27.20 Pulmonary hypertension, unspecified; F32.A Depression, unspecified; I83.90 Asymptomatic varicose veins of unspecified lower extremity; M79.89 Other specified soft tissue disorders; I42.9 Cardiomyopathy, unspecified; I08.3 Combined rheumatic disorders of mitral, aortic and tricuspid valves; G25.81 Restless legs syndrome; D63.8 Anemia in other chronic diseases classified elsewhere; G89.29 Other chronic pain; K21.9 Gastro-esophageal reflux disease without esophagitis; E87.6 Hypokalemia; E83.42 Hypomagnesemia; Z79.1 Long term (current) use of non-steroidal anti-inflammatories (NSAID); Z85.46 Personal history of malignant neoplasm of prostate; Z79.899 Other long term (current) drug therapy; Z91.030 Bee allergy status; Z88.8 Allergy status to other drugs, medicaments and biological substances; R91.8 Other nonspecific abnormal finding of lung field; E66.01 Morbid (severe) obesity due to excess calories; M54.59 Other low back pain